=== PATIENT | female | born 1965 | race Caucasian/White ===

== ENCOUNTER → 2019-04-16 15:32 | Outpatient (CLI) | payer OTHER, SELFPAY | PROVIDERS: Referring Provider Otolaryngology; Visit Provider Otolaryngology | DX: J02.9 Acute pharyngitis, unspecified (principal) | CPT/HCPCS: 87070 ==

== ENCOUNTER → 2019-11-11 11:32 | Outpatient (CLI) | payer OTHER, SELFPAY ==
[2019-11-11 10:43] VITALS: BMI 29.2
[2019-11-11 12:42] LABS: ALB/GLOB Ratio 1.1 RATIO (0.9-2.4); AST(SGOT) 25 U/L (15-37); Alanine Aminotransfer ALT/SGPT 37 U/L (13-56); Alkaline Phosphatase 105 U/L (45-117); Anion Gap 3 (5-15); BUN 15 mg/dL (7-18); BUN/Creat Ratio 19.7 RATIO (10-20); Calcium,Total 9.4 mg/dL (8.5-10.1); Chloride 106 mmol/L (98-107); Creatinine, Serum 0.76 mg/dL (0.55-1.02); EST Glomerular Filtration Rate 84 mL/min (>60); Est Glom Filt Rate - Afr Amer 101 mL/min (>60); Globulin 3.7 g/dL (2.2-4.2); Glucose 92 mg/dL (74-106); Potassium 4.1 mmol/L (3.5-5.1); Protein, Total 7.7 g/dL (6.4-8.2); Sodium Level 141 mmol/L (136-145)
== END ==
PROVIDERS: PCP Internal Medicine; Visit Provider Internal Medicine
DX: E78.5 Hyperlipidemia, unspecified (principal)
CPT/HCPCS: 36415; 80053

== ENCOUNTER → 2020-05-18 09:45 | Outpatient (CLI) | payer OTHER, SELFPAY ==
[2020-05-18 09:31] VITALS: BMI 29.2
[2020-05-18 12:19] LABS: Absolute Neutrophil Count 3.6 X10^3/uL (2.0-7.7); Basophil# 0.05 X10^3/uL; Basophil% 0.9 % (0-1); Eosinophil# 0.09 X10^3/uL; Eosinophils% 1.6 % (0-5); Hematocrit 42.8 % (37-47); Hemoglobin 13.8 g/dL (12.0-15.0); Lymphocyte % 23.7 % (19-41); Mean Corp Hgb Conc 32.2 g/dL (32-36); Mean Corpuscular Hgb 28.6 pg (27.0-32.0); Mean Corpuscular Volume 88.6 fL (81-99); Mean Platelet Vol. 9.4 fl (6.2-12.0); Monocyte# 0.42 X10^3/uL; Monocyte% 7.7 % (0-10); NRBC Flagged by Analyzer 0 % (0-5); Neutrophil # 3.61 X10^3/uL (2.7-7.7); Neutrophil % 65.7 % (47-70); Platelet Count 342 K/mm3 (150-450); RBC Distribution Width CV 13.9 % (11.6-14.6); RBC Distribution Width SD 45.1 fl (35.1-43.9); Red Blood Count 4.83 M/mm3 (4.2-5.4); White Blood Count 5.5 K/mm3 (4.4-11.0)
[2020-05-18 12:42] LABS: ALB/GLOB Ratio 1.1 RATIO (0.9-2.4); AST(SGOT) 21 U/L (15-37); Alanine Aminotransfer ALT/SGPT 28 U/L (13-56); Albumin, Serum 3.8 g/dL (3.2-5.0); Alkaline Phosphatase 91 U/L (45-117); Anion Gap 5 (5-15); BUN 12 mg/dL (7-18); BUN/Creat Ratio 16.2 RATIO (10-20); Calcium,Total 8.9 mg/dL (8.5-10.1); Chloride 109 mmol/L (98-107); Cholesterol 145 mg/dL (200); Creatinine, Serum 0.74 mg/dL (0.55-1.02); EST Glomerular Filtration Rate 86 mL/min (>60); Est Glom Filt Rate - Afr Amer 104 mL/min (>60); Globulin 3.5 g/dL (2.2-4.2); Glucose 85 mg/dL (74-106); High Density Lipoprotein 40 mg/dL; Potassium 4.4 mmol/L (3.5-5.1); Protein, Total 7.3 g/dL (6.4-8.2); Sodium Level 141 mmol/L (136-145); Triglycerides 103 mg/dL; Very Low Density Lipoprotein 21 mg/dL (5-40)
== END ==
PROVIDERS: PCP Internal Medicine; Referring Provider Internal Medicine; Visit Provider Internal Medicine
DX: E78.5 Hyperlipidemia, unspecified (principal)
CPT/HCPCS: 36415; 80053; 80061; 85025

== ENCOUNTER → 2020-12-17 08:34 | Outpatient (CLI) | payer OTHER, SELFPAY ==
[2020-05-18 09:31] VITALS: BMI 29.2
[2020-12-17 12:18] LABS: ALB/GLOB Ratio 1.1 RATIO (0.9-2.4); AST(SGOT) 26 U/L (15-37); Alanine Aminotransfer ALT/SGPT 33 U/L (13-56); Albumin, Serum 3.9 g/dL (3.2-5.0); Alkaline Phosphatase 69 U/L (45-117); Anion Gap 6 (5-15); BUN 13 mg/dL (7-18); BUN/Creat Ratio 17.2 RATIO (10-20); Chloride 104 mmol/L (98-107); Creatinine, Serum 0.75 mg/dL (0.55-1.02); EST Glomerular Filtration Rate 84 mL/min (>60); Est Glom Filt Rate - Afr Amer 102 mL/min (>60); Globulin 3.4 g/dL (2.2-4.2); Glucose 77 mg/dL (74-106); Potassium 4.1 mmol/L (3.5-5.1); Protein, Total 7.3 g/dL (6.4-8.2); Sodium Level 138 mmol/L (136-145)
== END ==
PROVIDERS: PCP Internal Medicine; Referring Provider Internal Medicine; Visit Provider Internal Medicine
DX: R17 Unspecified jaundice (principal)
CPT/HCPCS: 36415; 80053

== ENCOUNTER → 2021-01-01 09:07 | Outpatient (CLI) | payer OTHER, SELFPAY ==
[2020-05-18 09:31] VITALS: BMI 29.2
--- NOTE | 2021-01-01 08:44 | US_ITS ---
STUDY: ABDOMINAL ULTRASOUND - RIGHT UPPER QUADRANT REASON FOR VISIT: Female, 55 years old ELEVATED BILIRUBIN TECHNIQUE: Ultrasound evaluation of the right upper quadrant was performed with real-time and static ramos-scale imaging. TECHNICAL QUALITY: Adequate. COMPARISON: None. FINDINGS: Liver: The liver measures 13.7 cm. There is normal echogenicity of the liver. The bile ducts are within normal limits. There is hepatic color flow. The direction of portal flow is hepatopetal. There is no demonstrated mass lesion. Gallbladder: Normal distended gallbladder. The gallbladder wall measures 2 mm. There is a negative sonographic Bates''s sign. There is no pericholecystic fluid. There are no gallstones. Common Bile Duct (C.B.D.): The common bile duct measures 3 mm. Pancreas: Normal size of the head, body and tail of the pancreas. There is normal echogenicity of the pancreas. There is no demonstrated pancreatic mass or cyst. Right Kidney: Normal size of the right kidney. The right kidney measures 9.9 cm. Normal renal cortex. The right cortex measures 1.9 cm. There is no demonstrated renal mass or cyst. There is no right hydronephrosis. US/Abdomen Limited IMPRESSION: Normal right upper quadrant ultrasound examination. Electronically Signed: Glenn Little MD at 11:40 EDT Tel , Service support ,
== END ==
PROVIDERS: PCP Internal Medicine; Referring Provider Internal Medicine Gastroenterology; Visit Provider Internal Medicine Gastroenterology
DX: R17 Unspecified jaundice (principal)
CPT/HCPCS: 76705

== ENCOUNTER → 2021-05-17 09:50 | Outpatient (CLI) | payer OTHER, SELFPAY ==
[2021-05-17 10:18] LABS: Absolute Lymphocyte Count 1.16 X10^3/uL (0.83-4.51); Absolute Neutrophil Count 3.8 X10^3/uL (2.0-7.7); Basophil# 0.04 X10^3/uL; Basophil% 0.7 % (0-1); Eosinophil# 0.06 X10^3/uL; Eosinophils% 1.1 % (0-5); Hematocrit 44.2 % (37-47); Hemoglobin 14.1 g/dL (12.0-15.0); Lymphocyte # 1.16 X10^3/ul (0.83-4.51); Lymphocyte % 20.8 % (19-41); Mean Corp Hgb Conc 31.9 g/dL (32-36); Mean Corpuscular Hgb 28.9 pg (27.0-32.0); Mean Corpuscular Volume 90.6 fL (81-99); Mean Platelet Vol. 8.7 fl (6.2-12.0); Monocyte# 0.46 X10^3/uL; Monocyte% 8.3 % (0-10); NRBC Flagged by Analyzer 0 % (0-5); Neutrophil # 3.83 X10^3/uL (2.7-7.7); Neutrophil % 68.7 % (47-70); Platelet Count 370 K/mm3 (150-450); RBC Distribution Width CV 13.1 % (11.6-14.6); RBC Distribution Width SD 43.6 fl (35.1-43.9); Red Blood Count 4.88 M/mm3 (4.2-5.4); White Blood Count 5.6 K/mm3 (4.4-11.0)
[2021-05-17 10:48] LABS: ALB/GLOB Ratio 1.1 RATIO (0.9-2.4); AST(SGOT) 23 U/L (15-37); Alanine Aminotransfer ALT/SGPT 28 U/L (13-56); Albumin, Serum 3.9 g/dL (3.2-5.0); Alkaline Phosphatase 73 U/L (45-117); Anion Gap 2 (5-15); BUN 14 mg/dL (7-18); BUN/Creat Ratio 18.8 RATIO (10-20); Calcium,Total 9.4 mg/dL (8.5-10.1); Chloride 107 mmol/L (98-107); Cholesterol 147 mg/dL (200); Creatinine, Serum 0.74 mg/dL (0.55-1.02); EST Glomerular Filtration Rate 85 mL/min (>60); Est Glom Filt Rate - Afr Amer 103 mL/min (>60); Globulin 3.6 g/dL (2.2-4.2); Glucose 83 mg/dL (74-106); High Density Lipoprotein 39 mg/dL; Potassium 4.8 mmol/L (3.5-5.1); Protein, Total 7.5 g/dL (6.4-8.2); Sodium Level 138 mmol/L (136-145); Triglycerides 119 mg/dL; Very Low Density Lipoprotein 24 mg/dL (5-40)
== END ==
PROVIDERS: PCP Internal Medicine; Referring Provider Internal Medicine; Visit Provider Internal Medicine
DX: Z00.00 Encounter for general adult medical examination without abnormal findings (principal)
CPT/HCPCS: 36415; 80053; 80061; 85025

== ENCOUNTER 2021-11-10 09:00 | Outpatient (RCR) | payer OTHER, SELFPAY ==
--- NOTE | 2021-10-05 10:40 | HP.PTEVAL ---
Patient's Visit Information AURELIO POOLE is a 56 year old F referred to Physical Therapy by Dr. Carmen Arteaga DPM with a diagnosis of RIGHT 2ND METETARSAL PHALANGEAL CAPSULTIS. Date of Evaluation: 10/05/21 Physical Therapist: Suraj Michel, PT, Cert MDT, OCS - Visit Plan Frequency: 2x /Week Duration: 4 Weeks Plan: PT INTERVETION ROM TOES/ANKLE,FOOT INTRINSICS STRENGTHENING,ANKLE STRENGTHENING,PROPRIOCEPTION AND MANUAL THERAPY TOE/ANKLE MOBILIZATION - Subjective This 56 y/o female presents to physical therapy with with 2nd metatarsal pain. Patient had ligament repair 2nd metatarsal ligament repair ~ [address] Costa[address] Arteaga recommended adjusted orthotic with padding but irritated more so removed. Patient conts to have pain and unable to move 2nd-3rd and 4th. No prior PT .c/o paresthesia/tingling toes. Aggravating factors standing for extended period ,inactivity ,walking on uneven surfaces, elevated grade . Alleviating factors movement. Patient patient is frustrated with condition and pain. Patient condition affects QOL and function and job demands 4 hrs cleaning surface. SOCIAL: . VOCATION: cleaning - Pain Left Foot Pain Intensity (Out of 10): 6 Pain Intensity Range: 10 Comment: toes - Objective POSTURE: frontal plane mechanics -pes cavus ..hammer toes. GAIT: reciprocal pattern. NEURO: c/o numbness tingling toes. AROM: dorsiflexion 5 degrees from 0 , plantarflexion 60 degrees ,inversion 10 degrees, inversion 35 degrees. decrease toes flexion 5 degrees and extension 0 degrees. MMT: anterior tibials, posterior tibials , peroneus 4/5, G-S 4/5. PROPRIOCEPTION: fair 15-20 seconds. G-S FLEXABLITY: mod tight - Balance/Special Test Scores Lower Extremity Functional Score: 44 - Goals Goal 1:: Patient to be I with HEP for toe pain and ROM Goal Time Frame: 4-6 Weeks Goal 2:: Patient to demonstrate 60% improvement with decrease pain to improve gait and extended walking Goal Time Frame: 4-6 Weeks Goal 3:: Patient to improve AROM right ankle symmetrical and 2nd,3rd and 4th toes right to left to walk on uneven traisn Goal Time Frame: 4-6 Weeks Goal 4:: Patient to improve proprioception right 60sec to improve gait Goal Time Frame: 4-6 Weeks Goal 5:: Patient to improve LFES score by 10 points to improve function Goal Time Frame: 4-6 Weeks - Rehabilitation Potential Physical Therapy Diagnosis: This patient had 2nd toe ligament repair ~ one year ago pain persisted with decrease 2n,3rd,4th toe ROM ,strength, and proprioception gait thus benefit from skilled PT Rehabilitation Potential: Good - Anticipated Interventions Patient/Client Instruction: Educate patient on: Condition, Plan of Care For the Purpose of:: To decrease pain, To increase ROM, To improve muscle performance and motor function, To improve ability to perform ADL's, To increase tolerance to activity/condition/position, To improve ability of physical actions for home/community/work/leisure, To improve health of tissue, To decrease soft tissue restriction, To increase flexibility/ROM, To reduce risk of recurrence, To prevent re-injury Therapeutic Exercise to Include: Strength training, Balance training, Flexibilty training, Active ROM Comment: ANKLE/TOES For the Purpose of:: To decrease pain, To increase ROM, To improve muscle performance and motor function, To improve performance and independence with ADL's, To improve ability of physical actions for home/community/work/leisure, To improve health of tissue, To decrease soft tissue restriction, To increase flexibility/ROM, To improve safety with gait Manual Therapy Techniques to Include: Mobilization Comment: TOE/ANKLE For the Purpose of:: To increase ROM, To improve health of tissue, To decrease soft tissue restriction, To increase flexibility/ROM Thank you for the opportunity to evaluate your patient. For Medicare and Medicare HMO plans, please review the plan of care and approve it. It will need to be FAXED BACK to us at [phone] for Medicare purposes. For Medicare only, by signing this I certify the plan of care. Please let me know if there are questions or concerns regarding this plan of care. Physician Signature: Date:
--- NOTE | 2021-11-11 14:51 | HP.PTDCSUM ---
It has been my pleasure to treat AURELIO POOLE referred by Dr. Carmen Arteaga, DPM, with the diagnosis of LEFT 2ND METETARSAL PHALANGEAL CAPSULTIS for a total of 8 visit(s). Discharge Date: Please see the following information for a summary of their discharge status. Subjective: Doing well.. plan for possible MRI. Also patient has foot plate Left Foot Pain Intensity (Out of 10): 1 % Improvement: 90 Objective/Function: POSTURE: WFL. GAIT: RECIPROCAL PATTERN. MMT: ANKLE 5/5. 2ND TOE 3-/4 Goal 1:: Patient to be I with HEP for toe pain and ROM Goal 2:: Patient to demonstrate 60% improvement with decrease pain to improve gait and extended walking Goal 3:: Patient to improve AROM right ankle symmetrical and 2nd,3rd and 4th toes right to left to walk on uneven traisn Goal 4:: Patient to improve proprioception right 60sec to improve gait Goal 5:: Patient to improve LFES score by 10 points to improve function Plan: D/C TO HEP If there are questions or concerns regarding this patient's physical therapy, please feel free to call me at [phone]. Thank you for the referral of this patient. Sincerely, Suraj Michel, PT, Cert MDT, OCS Balance/Gait/Functional tests - Balance/Special Test Scores Lower Extremity Functional Score: 64
== END 2021-11-10 19:00 | disposition home or self-care (01) ==
LOC: PT 09:00
PROVIDERS: PCP Internal Medicine; Referring Provider Podiatrist; Visit Provider Podiatrist
DX: M77.52 Other enthesopathy of left foot and ankle (principal)
CPT/HCPCS: 97035; 97110; 97140; 97162

== ENCOUNTER 2021-11-30 08:02 | Outpatient (CLI) | payer OTHER, SELFPAY ==
--- NOTE | 2021-11-30 08:10 | MRI_ITS ---
STUDY: MRI LEFT FOREFOOT WITHOUT CONTRAST REASON FOR EXAM: Chronic pain of the distal second metatarsal, prior surgery in August 2020 without improvement, evaluate for capsulitis, plantar plate injury. TECHNIQUE: Standardized fat and water weighted pulse sequences were obtained in all 3 orthogonal planes. COMPARISON: None. FINDINGS: There is mild arthrosis of the metatarsophalangeal joint of the hallux with mild chondral thinning (T2 long axis image 11). There is very mild tibial sesamoiditis (inversion recovery short axis image 21). Normal fibular sesamoid. Normal interphalangeal joint of the hallux. There is mild bone edema in the ungual tuft of the first distal phalanx (inversion recovery sagittal image 20). Normal proximal phalanx of the great toe. Normal medial and lateral heads of the flexor hallucis brevis tendons. Normal flexor and extensor hallucis longus tendons. Normal second through fifth metatarsophalangeal (MTP) joints. Specifically there is no demonstrated tear of the plantar plate of the second metatarsophalangeal joint (inversion recovery sagittal images 16, 17). Specifically there is no demonstrated capsulitis of the second metatarsophalangeal joint. Normal interphalangeal joints of the second through fifth toes. Normal proximal, middle and distal phalanges of the second through fifth toes. There are hammertoe deformities of the second through fourth digits. Normal first through fourth intermetatarsal spaces. Normal flexor and extensor tendons of the second through fifth toes. There is a small subchondral stress fracture of the second metatarsal head (T1 sagittal image 15; T2 long axis image 11) with mild associated bone edema (inversion recovery short axis image 23). Normal intrinsic muscles of the forefoot. There is a pressure lesion in the subcutis adipose space plantar to the fifth metatarsophalangeal joint (T1 short axis image 17). MRI/Lower Ext/No Jt/w/o IMPRESSION: Small subchondral stress fracture of the second metatarsal head. Mild arthrosis of the first metatarsophalangeal joint. Mild bone edema in the ungual tuft of the first distal phalanx. Very mild tibial sesamoiditis. Pressure lesion in the subcutis adipose space plantar to the fifth metatarsophalangeal joint. No demonstrated capsulitis or plantar plate injury of the second metatarsophalangeal joint. Electronically Signed: Dick Kilgore MD at 10:02 EST ,
== END 2021-11-30 23:59 | disposition home or self-care (01) ==
LOC: MRI 08:05
PROVIDERS: PCP Internal Medicine; Referring Provider Podiatrist; Visit Provider Podiatrist
DX: M84.375A Stress fracture, left foot, initial encounter for fracture (principal); X58.XXXA Exposure to other specified factors, initial encounter; M19.072 Primary osteoarthritis, left ankle and foot; M25.872 Other specified joint disorders, left ankle and foot; M77.52 Other enthesopathy of left foot and ankle
CPT/HCPCS: 73718

== ENCOUNTER → 2022-05-01 | Outpatient (CLI) | payer OTHER, SELFPAY ==
[2022-05-01 12:08] LABS: Absolute Lymphocyte Count 1.56 X10^3/uL (0.83-4.51); Absolute Neutrophil Count 4.6 X10^3/uL (2.0-7.7); Basophil# 0.04 X10^3/uL; Basophil% 0.6 % (0-1); Eosinophil# 0.12 X10^3/uL; Eosinophils% 1.8 % (0-5); Hematocrit 40.5 % (37-47); Hemoglobin 13.5 g/dL (12.0-15.0); Lymphocyte # 1.56 X10^3/ul (0.83-4.51); Lymphocyte % 22.9 % (19-41); Mean Corp Hgb Conc 33.3 g/dL (32-36); Mean Corpuscular Hgb 29.7 pg (27.0-32.0); Mean Corpuscular Volume 89.2 fL (81-99); Mean Platelet Vol. 8.8 fl (6.2-12.0); Monocyte# 0.48 X10^3/uL; NRBC Flagged by Analyzer 0 % (0-5); Neutrophil # 4.59 X10^3/uL (2.7-7.7); Neutrophil % 67.4 % (47-70); Platelet Count 339 K/mm3 (150-450); RBC Distribution Width SD 42.2 fl (35.1-43.9); Red Blood Count 4.54 M/mm3 (4.2-5.4); White Blood Count 6.8 K/mm3 (4.4-11.0)
[2022-05-01 12:41] LABS: ALB/GLOB Ratio 1.1 RATIO (0.9-2.4); AST(SGOT) 26 U/L (15-37); Alanine Aminotransfer ALT/SGPT 33 U/L (13-56); Albumin, Serum 3.7 g/dL (3.2-5.0); Alkaline Phosphatase 81 U/L (45-117); Anion Gap 5 (5-15); BUN 11 mg/dL (7-18); BUN/Creat Ratio 13.9 RATIO (10-20); Calcium,Total 9.3 mg/dL (8.5-10.1); Chloride 106 mmol/L (98-107); Cholesterol 164 mg/dL (200); Creatinine, Serum 0.79 mg/dL (0.55-1.02); EST Glomerular Filtration Rate 80 mL/min (>60); Est Glom Filt Rate - Afr Amer 96 mL/min (>60); Globulin 3.5 g/dL (2.2-4.2); Glucose 90 mg/dL (74-106); High Density Lipoprotein 37 mg/dL; Potassium 4.5 mmol/L (3.5-5.1); Protein, Total 7.2 g/dL (6.4-8.2); Sodium Level 138 mmol/L (136-145); Triglycerides 145 mg/dL; Very Low Density Lipoprotein 29 mg/dL (5-40)
== END | disposition home or self-care (01) ==
LOC: BIMLAB 11:09
PROVIDERS: PCP Internal Medicine; Referring Provider Internal Medicine; Visit Provider Internal Medicine
DX: Z00.00 Encounter for general adult medical examination without abnormal findings (principal)
CPT/HCPCS: 36415; 80053; 80061; 85025

== ENCOUNTER → 2022-05-05 | Outpatient (CLI) | payer OTHER, SELFPAY ==
--- NOTE | 2022-05-05 07:27 | BI_ITS ---
MAMMOGRAPHY - BILATERAL SCREENING REASON FOR EXAM: Female, 56 years old. Routine annual screening examination. PERTINENT HISTORY: Non-contributory. TECHNIQUE: Digital bilateral breast mini (3D mammographic acquisition) in the CC and MLO projections. 2-D mediolateral oblique (MLO) and craniocaudad (CC) views of both breasts were obtained. CAD: Full Field Digital Mammography with Computer Added Detection was performed. COMPARISON: Screening mammogram from outside hospital from 10/20/2019 FINDINGS: Breast Composition: The breasts are heterogeneously dense, which may obscure small masses. There are no dominant masses or suspicious calcifications. No other significant abnormalities are identified. There has been no significant change since the prior study. BI/SCRN MAMM (CAD)W/MINI BILAT IMPRESSION: Stable bilateral screening mammogram. Yearly follow-up mammogram recommended. (A) ASSESSMENT CATEGORY: BIRADS Category 1: Negative. A letter regarding these results will be sent to the patient by the facility within 30 days. Approximately 10% of breast cancers are not detected by mammography. A normal mammogram should not delay biopsy of a clinically suspicious abnormality. Electronically Signed: Beck Jiang, at 10:14 EDT ,
== END | disposition home or self-care (01) ==
LOC: OPBI 07:26
PROVIDERS: PCP Internal Medicine; Visit Provider Internal Medicine
DX: Z12.31 Encounter for screening mammogram for malignant neoplasm of breast (principal)
CPT/HCPCS: 77063; 77067

== ENCOUNTER → 2022-05-27 | Outpatient (CLI) | payer OTHER, SELFPAY ==
--- NOTE | 2022-05-27 07:37 | MRI_ITS ---
STUDY: MRI LEFT FOREFOOT WITHOUT CONTRAST REASON FOR EXAM: Female, 56 years old. FOOT PAIN,2ND MT CYST, 2ND DIGIT HAMMER TOE TECHNIQUE: Standardized fat and water weighted pulse sequences were obtained in all 3 orthogonal planes. COMPARISON: 11/30/2021 FINDINGS: Normal metatarsophalangeal joint of the hallux. Normal tibial and fibular sesamoids, with normal sesamoids-first metatarsal articulations. Normal interphalangeal joint of the hallux. Normal proximal and distal phalanges of the great toe. Normal medial and lateral heads of the flexor hallucis brevis tendons. Normal flexor and extensor hallucis longus tendons. Normal second through fifth metatarsophalangeal (MTP) joints. Normal interphalangeal joints of the second through fifth toes. Normal proximal, middle and distal phalanges of the second through fifth toes. Normal first through fourth intermetatarsal spaces. Normal flexor and extensor tendons of the second through fifth toes. Normal visualized metatarsi. Normal intrinsic muscles of the forefoot. There is no demonstrated soft tissue abnormality. MRI/Lower Ext/No Jt/w/o IMPRESSION: Normal unenhanced MRI of the forefoot. Electronically Signed: Glenn Little MD at 13:09 EDT ,
== END | disposition home or self-care (01) ==
LOC: MRI 07:16
PROVIDERS: PCP Internal Medicine; Referring Provider Podiatrist; Visit Provider Podiatrist
DX: M20.42 Other hammer toe(s) (acquired), left foot (principal); M85.60 Other cyst of bone, unspecified site; M79.672 Pain in left foot
CPT/HCPCS: 73718

== ENCOUNTER → 2023-06-27 | Outpatient (CLI) | payer OTHER, SELFPAY ==
[2023-06-27 16:37] LABS: Basophil# 0.05 X10^3/uL; Basophil% 0.7 % (0-1); Eosinophil# 0.18 X10^3/uL; Eosinophils% 2.4 % (0-5); Hemoglobin 13.7 g/dL (12.0-15.0); Lymphocyte % 21.4 % (19-41); Mean Corp Hgb Conc 32.6 g/dL (32-36); Mean Corpuscular Hgb 29.1 pg (27.0-32.0); Mean Corpuscular Volume 89.4 fL (81-99); Mean Platelet Vol. 8.7 fl (6.2-12.0); NRBC Flagged by Analyzer 0 % (0-5); Neutrophil # 5.01 X10^3/uL (2.7-7.7); Neutrophil % 67.1 % (47-70); Platelet Count 363 K/mm3 (150-450); RBC Distribution Width SD 42.5 fl (35.1-43.9); White Blood Count 7.5 K/mm3 (4.4-11.0)
[2023-06-27 18:14] LABS: ALB/GLOB Ratio 1.1 RATIO (0.9-2.4); AST(SGOT) 19 U/L (15-37); Alanine Aminotransfer ALT/SGPT 30 U/L (13-56); Albumin, Serum 3.9 g/dL (3.2-5.0); Alkaline Phosphatase 82 U/L (45-117); Anion Gap 2 (5-15); BUN 15 mg/dL (7-18); BUN/Creat Ratio 18.5 RATIO (10-20); Calcium,Total 10.1 mg/dL (8.5-10.1); Chloride 106 mmol/L (98-107); Cholesterol 158 mg/dL (200); Creatinine, Serum 0.81 mg/dL (0.55-1.02); EST Glomerular Filtration Rate 77 mL/min (>60); Est Glom Filt Rate - Afr Amer 93 mL/min (>60); Globulin 3.4 g/dL (2.2-4.2); Glucose 92 mg/dL (74-106); High Density Lipoprotein 32 mg/dL; Potassium 4.3 mmol/L (3.5-5.1); Protein, Total 7.3 g/dL (6.4-8.2); Sodium Level 137 mmol/L (136-145); T4 Free Direct 0.74 ng/dL (0.76-1.46); Thyroid Stim Hormone (TSH) 2.31 uIU/mL (0.358-3.74); Triglycerides 186 mg/dL; Very Low Density Lipoprotein 37 mg/dL (5-40)
== END | disposition home or self-care (01) ==
LOC: BIMLAB 15:23
PROVIDERS: PCP Internal Medicine; Referring Provider Internal Medicine; Visit Provider Internal Medicine
DX: E78.5 Hyperlipidemia, unspecified (principal); E03.9 Hypothyroidism, unspecified
CPT/HCPCS: 36415; 80053; 80061; 84439; 84443; 85025

== ENCOUNTER → 2023-08-06 | Outpatient (CLI) | payer OTHER, SELFPAY ==
--- NOTE | 2023-08-06 07:23 | BI_ITS ---
MAMMOGRAPHY - BILATERAL SCREENING REASON FOR EXAM: Female, 57 years old. Routine annual screening examination. PERTINENT HISTORY: Non-contributory. TECHNIQUE: Digital bilateral breast mini (3D mammographic acquisition) in the CC and MLO projections. 2-D mediolateral oblique (MLO) and craniocaudad (CC) views of both breasts were obtained. CAD: Full Field Digital Mammography with Computer Added Detection was performed. COMPARISON: Comparison is made with prior study May 05, 2022. FINDINGS: Breast Composition: The breasts are heterogeneously dense, which may obscure small masses. There are no dominant masses or suspicious calcifications. Stable benign-appearing bilateral axillary lymph nodes. No other significant abnormalities are identified. There has been no significant change since the prior study. BI/SCRN MAMM (CAD)W/MINI BILAT IMPRESSION: Stable bilateral screening mammogram. Yearly follow-up mammogram recommended. (A) ASSESSMENT CATEGORY: BIRADS Category 2: Benign. A letter regarding these results will be sent to the patient by the facility within 30 days. Approximately 10% of breast cancers are not detected by mammography. A normal mammogram should not delay biopsy of a clinically suspicious abnormality. [id number] Electronically Signed: Moi Reddy MD at 9:16 EST ,
== END | disposition home or self-care (01) ==
LOC: OPBI 07:22
PROVIDERS: PCP Internal Medicine; Referring Provider Internal Medicine; Visit Provider Internal Medicine
DX: Z12.31 Encounter for screening mammogram for malignant neoplasm of breast (principal)
CPT/HCPCS: 77063; 77067

== ENCOUNTER → 2024-06-30 | Outpatient (CLI) | payer OTHER, SELFPAY ==
[2024-06-30 12:13] LABS: Absolute Lymphocyte Count 1.18 X10^3/uL (0.83-4.51); Absolute Neutrophil Count 3.7 X10^3/uL (2.0-7.7); Basophil# 0.04 X10^3/uL; Basophil% 0.7 % (0-1); Eosinophil# 0.16 X10^3/uL; Eosinophils% 2.9 % (0-5); Hematocrit 44.3 % (37-47); Hemoglobin 14.2 g/dL (12.0-15.0); Lymphocyte # 1.18 X10^3/ul (0.83-4.51); Lymphocyte % 21.1 % (19-41); Mean Corp Hgb Conc 32.1 g/dL (32-36); Mean Corpuscular Hgb 28.9 pg (27.0-32.0); Mean Platelet Vol. 9.2 fl (6.2-12.0); Monocyte# 0.51 X10^3/uL; Monocyte% 9.1 % (0-10); NRBC Flagged by Analyzer 0 % (0-5); Platelet Count 339 K/mm3 (150-450); RBC Distribution Width CV 13.2 % (11.6-14.6); RBC Distribution Width SD 43.8 fl (35.1-43.9); Red Blood Count 4.92 M/mm3 (4.2-5.4); White Blood Count 5.6 K/mm3 (4.4-11.0)
[2024-06-30 12:31] LABS: Vitamin D,25 Hydroxy 30.7 ng/mL
[2024-06-30 12:47] LABS: ALB/GLOB Ratio 1.1 RATIO (0.9-2.4); AST(SGOT) 24 U/L (15-37); Alanine Aminotransfer ALT/SGPT 25 U/L (13-56); Albumin, Serum 3.7 g/dL (3.2-5.0); Alkaline Phosphatase 77 U/L (45-117); Anion Gap 6 (5-15); BUN 12 mg/dL (7-18); BUN/Creat Ratio 14.2 RATIO (10-20); Calcium,Total 9.7 mg/dL (8.5-10.1); Chloride 106 mmol/L (98-107); Cholesterol 144 mg/dL (200); Creatinine, Serum 0.84 mg/dL (0.55-1.02); EST Glomerular Filtration Rate 73 mL/min (>60); Est Glom Filt Rate - Afr Amer 89 mL/min (>60); Globulin 3.5 g/dL (2.2-4.2); Glucose 89 mg/dL (74-106); High Density Lipoprotein 40 mg/dL; Potassium 4.4 mmol/L (3.5-5.1); Protein, Total 7.2 g/dL (6.4-8.2); Sodium Level 138 mmol/L (136-145); T4 Free Direct 0.79 ng/dL (0.76-1.46); Triglycerides 138 mg/dL; Very Low Density Lipoprotein 28 mg/dL (5-40)
== END | disposition home or self-care (01) ==
LOC: BIMLAB 09:49
PROVIDERS: PCP Internal Medicine; Referring Provider Internal Medicine; Visit Provider Internal Medicine
DX: Z00.00 Encounter for general adult medical examination without abnormal findings (principal); E03.9 Hypothyroidism, unspecified; E55.9 Vitamin D deficiency, unspecified
CPT/HCPCS: 36415; 80053; 80061; 82306; 84439; 84443; 85025

== ENCOUNTER → 2024-08-07 | Outpatient (CLI) | payer OTHER, SELFPAY ==
--- NOTE | 2024-08-07 11:54 | BI_ITS ---
MAMMOGRAPHY - BILATERAL SCREENING REASON FOR EXAM: Female, 58 years old. Routine annual screening examination. PERTINENT HISTORY: Non-contributory. TECHNIQUE: Digital bilateral breast mini (3D mammographic acquisition) in the CC and MLO projections. 2-D mediolateral oblique (MLO) and craniocaudad (CC) views of both breasts were obtained. CAD: Full Field Digital Mammography with Computer Added Detection was performed. COMPARISON: Comparison is made with prior study dated August 06, 2023 and May 05, 2022. FINDINGS: Breast Composition: The breasts are heterogeneously dense, which may obscure small masses. There are no dominant masses or suspicious calcifications. No other significant abnormalities are identified. There has been no significant change since the prior study. BI/SCRN MAMM (CAD)W/MINI BILAT IMPRESSION: Stable bilateral screening mammogram. Yearly follow-up mammogram recommended. (A) ASSESSMENT CATEGORY: BIRADS Category 1: Negative. A letter regarding these results will be sent to the patient by the facility within 30 days. Approximately 10% of breast cancers are not detected by mammography. A normal mammogram should not delay biopsy of a clinically suspicious abnormality. [id number] Electronically Signed: Moi Reddy MD at 13:14 EST ,
== END | disposition home or self-care (01) ==
LOC: OPBI 11:54
PROVIDERS: PCP Internal Medicine; Referring Provider Nurse Practitioner Women's Health; Visit Provider Nurse Practitioner Women's Health
DX: Z12.31 Encounter for screening mammogram for malignant neoplasm of breast (principal)
CPT/HCPCS: 77063; 77067

== ENCOUNTER → 2024-12-03 | Outpatient (CLI) | payer OTHER, SELFPAY | END | disposition home or self-care (01) | LOC: BIMLAB 10:02 | PROVIDERS: PCP Internal Medicine; Referring Provider Internal Medicine; Visit Provider Internal Medicine | DX: E03.9 Hypothyroidism, unspecified (principal) | CPT/HCPCS: 36415; 84439; 84443 ==

== ENCOUNTER → 2025-01-13 | Outpatient (CLI) | payer OTHER, SELFPAY | END | disposition home or self-care (01) | LOC: BIMLAB 08:16 | PROVIDERS: PCP Internal Medicine; Referring Provider Internal Medicine; Visit Provider Internal Medicine | DX: E03.9 Hypothyroidism, unspecified (principal) | CPT/HCPCS: 36415; 84443 ==

== ENCOUNTER → 2025-03-18 | Outpatient (CLI) | payer OTHER, SELFPAY | END | disposition home or self-care (01) | LOC: BIMLAB 08:47 | PROVIDERS: PCP Internal Medicine; Referring Provider Internal Medicine; Visit Provider Internal Medicine | DX: E03.9 Hypothyroidism, unspecified (principal) | CPT/HCPCS: 36415; 84443 ==

== ENCOUNTER → 2025-07-01 | Outpatient (CLI) | payer OTHER, SELFPAY ==
[2025-07-01 10:43] LABS: Hematocrit 39.7 % (37-47); Hemoglobin 13.2 g/dL (12.0-15.0); Immature Granulocytes Count 0.020 X10^3/uL (0.0-0.0); Mean Corp Hgb Conc 33.2 g/dL (32-36); Mean Corpuscular Volume 87.6 fL (81-99); Mean Platelet Vol. 8.9 fl (6.2-12.0); NRBC Flagged by Analyzer 0 % (0-5); Platelet Count 279 K/mm3 (150-450); RBC Distribution Width CV 12.8 % (11.6-14.6); RBC Distribution Width SD 41.1 fl (35.1-43.9); Red Blood Count 4.53 M/mm3 (4.2-5.4); White Blood Count 5.0 K/mm3 (4.4-11.0)
[2025-07-01 12:18] LABS: AST(SGOT) 36 U/L (<=31); Alanine Aminotransfer ALT/SGPT 36 U/L (<=34); Albumin, Serum 4.4 g/dL (3.4-4.8); Alkaline Phosphatase 92 U/L (35-104); Anion Gap 11 (5-15); BUN 14 mg/dL (4-19); BUN/Creat Ratio 19.2 RATIO (10-20); Calcium,Total 9.7 mg/dL (7.6-11.0); Carbon Dioxide 25.7 mmol/L (21.0-32.0); Chloride 104 mmol/L (98-108); Cholesterol 192 mg/dL (<=200); Globulin 3.0 g/dL (2.2-4.2); Glucose 91 mg/dL (70-99); Low Density Lipoprotein Calc. 116 mg/dL; Potassium 4.2 mmol/L (3.3-5.1); Triglycerides 116 mg/dL; Very Low Density Lipoprotein 23 mg/dL (5-40); cholesterol:hdl ratio screen 3.64
== END | disposition home or self-care (01) ==
PROVIDERS: PCP Internal Medicine; Referring Provider Internal Medicine; Visit Provider Internal Medicine
DX: E03.9 Hypothyroidism, unspecified (principal); E78.5 Hyperlipidemia, unspecified; I10 Essential (primary) hypertension; Z82.49 Family history of ischemic heart disease and other diseases of the circulatory system
CPT/HCPCS: 36415; 80053; 80061; 83695; 84443; 85025

== ENCOUNTER → 2025-08-27 | Outpatient (CLI) | payer OTHER, SELFPAY ==
--- OUTSIDE RECORDS SUMMARY | 2025-08-27 09:34 | XMS RPT_ITS | CCD ---
Author Organization [facility] Care Team Providers Care Element Winding Machine Tender Name Role Phone Dr. Lucía Sorto Primary Care Provider [phone] Dr. Lucía Sorto Attending Provider [phone] Dr. Lucía Sorto Referring Provider [phone] LUCÍA SORTO Primary Care Unavailable Lucía Sorto MD Primary Care Provider [phone] UMA EVANS MD Attending LUCÍA Arias MD Primary Care UnavailUMA Luo MD Attending LUCÍA Arias MD Primary Care UnavailDr. Lucía Nance Primary Care Provider [phone] Dr. Lucía Sorto Referring Provider [phone] MICKY Jacinto Attending Provider Dr. Lucía Sorto Attending Provider [phone] Dr. Lucía Sorto MD Primary Care Provider Dr. Lucía Sorto MD Referring Provider [phone] Paz Dominguez Attending Provider Dr. Lucía Sorto MD Attending Provider [phone] NURSE, BIM Attending Provider Dr. Lucía Bruno MD Primary Care Provider Dr. Lucía Sorto MD Referring Provider [phone] Macario FIGUEROA, Dr. Castrejon Primary Care Physician Macario FIGUEROA, Dr. Castrejon Attending Physician [phone] Macario FIGUEROA, Dr. Castrejon Referring Provider [phone] Richa FIGUEROA, Ryan Z Unavailable Macario FIGUEROA, Lucía B Unavailable [phone] Oleghe, Efewongbe Primary Care Unavailable Andres CARBONATION EQUIPMENT TENDER, Paz Attending Unavailable [place] CARBONATION EQUIPMENT TENDER, Paz Referring Unavailable Oleghe, Efewongbe Primary Care Unavailable Oleghe, Efewongbe Attending Unavailable Oleghe, Efewongbe Referring Unavailable Oleghe, Efewongbe Primary Care Unavailable Oleghe, Efewongbe Attending Unavailable Oleghe, Efewongbe Referring Unavailable Oleghe, Efewongbe Attending Unavailable Oleghe, Efewongbe Referring Unavailable Oleghe, Efewongbe Primary Care Unavailable Oleghe, Efewongbe Attending Unavailable Oleghe, Efewongbe Referring Unavailable Oleghe, Efewongbe Primary Care Unavailable Oleghe, Efewongbe Attending Unavailable Oleghe, Efewongbe Referring Unavailable Oleghe, Efewongbe Primary Care Unavailable Oleghe, Efewongbe Attending Unavailable Oleghe, Efewongbe Referring Unavailable Oleghe, Efewongbe Primary Care Unavailable Oleghe, Efewongbe Attending Unavailable Oleghe, Efewongbe Referring Unavailable Oleghe, Efewongbe Primary Care Unavailable Oleghe, Efewongbe Primary Care Unavailable [place] CARBONATION EQUIPMENT TENDER, Paz Attending Unavailable Oleghe, Efewongbe Referring Unavailable Oleghe, Efewongbe Attending Unavailable Oleghe, Efewongbe Referring Unavailable Oleghe, Efewongbe Primary Care Unavailable Oleghe, Efewongbe Primary Care Unavailable Oleghe, Efewongbe Attending Unavailable Allergies Allergy Classification Reported Allergen(s) Allergy Type Date of Onset Reaction(s) Facility (8 sources) Penicillins; Translations: [Penicillins] Allergy to substance 2 Hives and Rash [facility] (1 source) Penicillin V Drug Allergy [facility] Medications Current Medications Medication Drug Class(es) Dates Sig (Normalized) Sig (Original) amLODIPine 5 mg oral tablet (2 sources) Dihydropyridine Calcium Channel Tin Start: 07-01-2025 take 1 tablet by mouth once daily Amlodipine 5 mg tablet Active 5 mg PO daily 30 3 July 01, 2025 12:00am Complies with drug therapy [id number]-[id number] (METHYLCOBALAMIN) 1 MG CHEW (1 source) take 1 tablet by mouth once daily B12 Active 1,000 mcg chewable tablet 1 tablet by mouth once a day active Lilia Ambrose LPN [facility] calcium carbonate 1500 mg oral tablet (7 sources) Start: 10-30-2019 take 1 tablet by mouth once daily Calcium Carbonate (Calcium 600) 600 mg calcium (1,500 mg) tablet Active 600 mg PO DAILY October 30, 2019 1:00am Complies with drug therapy cholecalciferol 0.125 mg disintegrating oral tablet (7 sources) Vitamin D Start: 10-30-2019 Cholecalciferol (Vitamin D3) 5,000 unit tablet,disintegrati ng Active U PO October 30, 2019 1:00am Complies with drug therapy Start: 10-30-2019 Cholecalcifero l (Vitamin D3) Active UNIT PO October 30, 2019 12:00am fluticasone propionate 0.05 mg/actuat metered dose nasal spray (7 sources) Corticosteroid Start: 10-30-2019 take 50 ug nasal route once daily Fluticasone Propionate (Flonase Allergy Relief) 50 mcg/actuation spray,suspension Active 1 NMA INTRANASAL DAILY October 30, 2019 1:00am administer into each nostril Complies with drug therapy Start: 10-30-2019 take 1 spray(s) nasa l route once daily Fluticasone Propionate (Flonase Allergy Relief) 50 mcg/actuation spray,suspension Active 1 SPRAY INTRANASAL DAILY October 30, 2019 12:00am administer into each nostril ibuprofen 200 mg oral tablet (7 sources) Nonsteroidal Anti-inflammatory Drug Start: 10-30-2019 take 1 tablet by mouth every six hours as needed Ibuprofen (Advil) 200 mg tablet Active 200 mg PO EVERY 6 HOURS as needed October 30, 2019 1:00am Complies with drug therapy levothyroxine sodium 0.025 mg oral tablet (10 sources) l-Thyroxine Start: 01-13-2025 End: 03-25-2025 take 0.5 tablet by mouth once daily Levothyroxine 25 mcg tablet Active 25 ug PO daily 120 2 March 25, 2025 2:21pm take an additional half tablet on one day of the week Complies with drug therapy Start: 12-12-2024 End: 01-13-2025 take 1 tablet by mouth once daily Levothyroxine 25 mcg tablet Discontinued 25 ug PO daily 30 2 December 12, 2024 12:00am January 13, 2025 3:54pm rosuvastatin calcium 20 mg oral tablet (1 source) HMG-CoA Reductase Inhibitor take 1 tablet by mouth once daily rosuvastatin 20 mg tablet 1 tablet by mouth once a day active Lilia Ambrose LPN [facility] vitamin b12 1 mg oral tablet (7 sources) Vitamin B12 Start: take 1 tablet by mouth once daily Cyanocobalamin (Vitamin B-12) (Vitamin B-12) 1,000 mcg tablet Active 1000 ug PO DAILY May 17, 2021 12:00am Complies with drug therapy Completed/Discontinued Medications Medication Drug Class(es) Dates Sig (Normalized) Sig (Original) allergy shots (7 sources) Start: 10-30-2019 End: 05-01-2022 allergy shots Discontinued IM 0 October 30, 2019 1:00am May 01, 2022 10:48am Start: 10-30-2019 End: 05-01-2022 allergy shots Discontinued I M October 30, 2019 12:00am May 01, 2022 9:48am Start: 10-30-2019 End: 05-01-2022 allergy shots Discontinued I M October 30, 2019 1:00am May 01, 2022 10:48am diclofenac sodium 0.01 mg/mg topical gel (7 sources) Nonsteroidal Anti-inflammatory Drug Start: 11-11-2019 End: 05-25-2023 apply 2 g topically once Diclofenac Sodium 1 % gel Discontinued 2 g TOPICAL ONCE November 11, 2019 1:00am May 25, 2023 9:22am apply to single elbow, wrist or hand; for hand includes palm/fingers/back of hand Start: 11-11-2019 End: 05-25-2023 apply 2 g topically once Diclofenac Sodium Discontinu ed 2 GM TOPICAL ONCE November 11, 2019 12:00am May 25, 2023 8:22am apply to single elbow, wrist or hand; for hand includes palm/fingers/back of hand iodoral (7 sources) Start: 05-17-2021 End: 06-27-2023 iodoral Discontinued PO 0 Au annel 2020 12:00am June 27, 2023 2:43pm Start: 05-17-2021 End: 06-27-2023 iodoral Discontinued PO Apru 2020 12:00am June 27, 2023 2:43pm Start: 05-17-2021 End: 06-27-2023 iodoral Discontinued PO Apru 2020 11:00pm June 27, 2023 1:43pm Start: 05-17-2021 iodoral Active PO May 17, 2021 12:00am methylPREDNISolone 4 mg oral tablet (5 sources) Corticosteroid Start: 05-25-2023 End: 05-31-2023 take 1 tablet by mouth once Methylprednisolone (Medrol (Ranjan)) 4 mg tablets,dose pack Discontinued 4 mg PO per package directions 21 6 0 May 25, 2023 12:00am May 30, 2023 12:00am May 31, 2023 12:04am progesterone 100 mg oral capsule (11 sources) Progesterone Start: 05-17-2021 End: 10-29-2024 take 1 capsule by mouth at bedtime Progesterone Micronized 100 mg capsule Discontinued 100 mg PO AT BEDTIME June 30, 2024 9:32am October 29, 2024 10:27am off 7 days; repeat cycle simvastatin 20 mg oral tablet (20 sources) HMG-CoA Reductase Inhibitor Start: 10-30-2019 End: 07-30-2024 take 1 tablet by mouth at bedtime Simvastatin 20 mg tablet Discontinued 20 mg PO AT BEDTIME 90 0 May 05, 2024 10:01am July 30, 2024 2:27pm thyroid (care home) 30 mg oral tablet (5 sources) Start: 06-27-2023 End: 12-12-2024 Thyroid (Pork) (Customer Experience Analyst Thyroid) 30 mg tablet Discontinued mg PO June 27, 2023 12:00am December 12, 2024 1:43pm Problems Active Problems Problem Classification Problem Date Documented Date Episodic/Chronic Acquired foot deformities (2 sources) Other hammer toe(s) (acquired), left foot; Translations: [Other hammer toe(s) (acquired), left foot] Onset: 11-20-2022 Chronic Cardiac dysrhythmias (3 sources) Palpitations; Translations: [Palpitations] Onset: 07-01-2025 07-01-2025 Episodic Disorders of lipid metabolism (12 sources) Hyperlipidemia; Translations: [Hyperlipidemia, unspecified] Onset: 11-20-2022 Chronic Essential hypertension (3 sources) Hypertensive disorder; Translations: [Essential (primary) hypertension] Onset: 07-01-2025 07-01-2025 Chronic Immunizations and screening for infectious disease (1 source) Encounter for immunization; Translations: [Encounter for immunization] Onset: 07-01-2025 Episodic Menopausal disorders (6 sources) Atrophic vaginitis; Translations: [Postmenopausal atrophic vaginitis] 10-29-2024 Chronic Comment on above: coconut oil. If sx c all for vaginal estrogen cream Menopausal disorders (4 sources) Drug therapy finding; Translations: [Hormone replacement therapy] 10-29-2024 Episodic Nutritional deficiencies (4 sources) Vitamin D deficiency; Translations: [Vitamin D deficiency, unspecified] 06-30-2024 Chronic Osteoarthritis (2 sources) Primary osteoarthritis, right wrist; Translations: [Osteoarthrosis, localized, primary, forearm] Onset: 07-09-2025 07-09-2025 Chronic Other circulatory disease (5 sources) Elevated blood-pressure reading without diagnosis of hypertension; Translations: [Elevated blood-pressure reading, without diagnosis of hypertension] 12-12-2024 Episodic Other connective tissue disease (1 source) Pain in finger Episodic Other connective tissue disease (1 source) Pain in finger of left hand; Translations: [Pain in left finger(s)] 07-01-2025 Episodic Other connective tissue disease (2 sources) Digital mucous cyst of left hand; Translations: [Ganglion, left hand] Onset: 07-09-2025 07-09-2025 Episodic Other connective tissue disease (1 source) Pain in left finger(s); Translations: [Pain in left finger(s)] Onset: 07-01-2025 Episodic Residual codes; unclassified (4 sources) Postmenopausal state; Translations: [Asymptomatic menopausal state] 07-15-2024 Episodic Residual codes; unclassified (1 source) FH: premature coronary heart disease; Translations: [Family history of ischemic heart disease and other diseases of the circulatory system] 07-01-2025 Episodic Residual codes; unclassified (2 sources) Family history of ischemic heart disease and other diseases of the circulatory system; Translations: [Family history of ischemic heart disease and other diseases of the circulatory system] Onset: 07-01-2025 Episodic Sprains and strains (6 sources) Shoulder strain; Translations: [Strain of unspecified muscle, fascia and tendon at shoulder and upper arm level, right arm, initial encounter] 05-25-2023 Episodic Thyroid disorders (7 sources) Hypothyroidism; Translations: [Hypothyroidism, unspecified] Onset: 07-21-2025 06-27-2023 Chronic Thyroid disorders (2 sources) Disorder of thyroid, unspecified; Translations: [Disorder of thyroid, unspecified] Onset: 11-20-2022 Episodic Unclassified (1 source) M79.645 - Pain in left finger(s) Past or Other Problems Problem Classification Problem Date Documented Da te Episodic/Chronic Other circulatory disease (1 source) Elevated blood-pressure reading, without diagnosis of hypertension; Translations: [Elevated blood-pressure reading, without diagnosis of hypertension] Onset: 12-24-2024 Episodic Other screening for suspected conditions (not mental disorders or infectious disease) (1 source) Encounter for screening mammogram for malignant neoplasm of breast; Translations: [Encounter for screening mammogram for malignant neoplasm of breast] Onset: 09-06-2024 Episodic Results Test Name Value Interpretation Reference Range Facility 12 Lead EKGon 07-29-2025 12 Lead EKG [facility] Cardiovascular Services [address] [place] [address] 12 Lead EKG 07/29/25 0837 MR#: [id number] Acct: [id number] Name: AURELIO POOLE I Rep #: [id number] : 1965 59 From: Domingo Harrington MD Attending Dr: Dr. Lucía Sorto MD Status: PRE CLI Ordering Dr: Lucía Sorto MD Date: 07/29/25 Location: [facility] [place] Sex: F C Admitted: Test Reason : PALPS Blood Pressure : */* mmHG Vent. Rate : 58 BPM Atrial Rate : 58 BPM P-R Int : 150 ms QRS Dur : 92 ms QT Int : 452 ms P-R-T Axes : 5 29 6 degrees QTcB Int : 443 ms Sinus bradycardia Otherwise normal ECG Confirmed by Domingo Harrington ([id number]), assignment desk editor MARY ANN FLANAGAN ([id number]) on 07/29/2025 12:39:42 PM Referred By: Lucía Sorto Confirmed By: Domingo Harrington 07/29/25 1239 Date Domingo Harrington MD CC: Dr. Lucía Sorto MD Signed Normal [facility] Limited Chest CT Cardiac Onl yon 07-29-[address] Cardiac Only [facility] Imaging Services [address] [place] [id number] Cardiac Only MR#: [id number] Acct: [id number] Name: AURELIO POOLE I Rep #: [id number] : 1965 F 59 From: Lenin Alex PCP: Dr. Lucía Sorto MD Status: REG REF Study: Limited Chest CT Cardiac Only Date of Exam: Exam# [id number] Ordering Dr: Lucía Sorto MD PROCEDURE: LIMITED CHEST CT CARDIAC ONLY 07/29/2025 REASON FOR EXAM: CALCIUM SCORING Hypercholesterolemia, hypertension. Family history of coronary artery disease. TECHNIQUE: Procedure Code: CTCCTACHLIM Modality: CT Procedure: LIMITED CHEST CT CARDIAC ONLY One or more dose reduction techniques were used (e.g., Automated exposure control, adjustment of the mA and/or kV according to patient size, use of iterative reconstruction technique). RADIATION DOSE SUMMARY: CTDlvol: 12.19 mGy DLP: 195.04 mGycm COMPARISON: None. CT/Limited Chest CT Cardiac Only IMPRESSION: Limited imaging of the lungs demonstrates no acute process. No pleural effusion or pneumothorax is seen in visualized areas. No adenopathy is noted. The visualized upper abdomen demonstrates no significant abnormality. Reading Location: [place] [address] CC: Dr. Lucía Sorto MD Index Clerk: Signed Normal [facility] Relevant diagnostic tests/la boratory data Narrativeon 07-09-2025 Fall risk assessment no SHONA Kaltura Work Phone: MEDS REVIEW Done [employer] Work Phone: MEDS REVIEWD Medications reviewed with changes [employer] Work Phone: Lipoprotein Aon 07-02-2025 Lipoprotein a [Moles/Vol] 295.5 nmol/L Abnormal <75.0 [facility] Comment on above: Order Comment: Test( s) 730037-Puhyeimdjtt (a)was developed and its performance characteristicsdetermined by [employer]. It has not been cleared or approvedby the Food and Drug Administration. Result Comment: Resu lts confirmed on dilution. Note: Values greater than or equal to 75.0 nmol/L may indicate an independent risk factor for CHD, but must be evaluated with caution when applied to non- populations due to the influence of genetic factors on Lp(a) across ethnicities. Performed at: [address] [id number] Travel Manager: Dion Borjas PhD, Phone: [phone] Performed By: #### L 500.4050, L500.4100, L3400.4600, L100.0100, L501.9520 ####[facility] [address] [place], [address] CBC W/Diff, Automatedon 10-0 Absolute Lymph 1.28 X10 3/uL Normal 0.83-4.51 [facility] Comment on above: Performed By: #### L 500.4050, L500.4100, L3400.4600, L100.0100, L501.9520 #### [facility] [address] [place], [place], [id number] Absolute Neut 3.2 X10 3/uL Normal 2.0-7.7 [facility] Comment on above: Performed By: #### L 500.4050, L500.4100, L3400.4600, L100.0100, L501.9520 #### [facility] [address] [place], [address] Basophils/100 WBC (Bld) 0.8 % Normal 0-1 [facility] Comment on above: Performed By: #### L 500.4050, L500.4100, L3400.4600, L100.0100, L501.9520 #### [facility] [address] [place], [address] Eosinophils/100 WBC (Bld) 2.0 % Normal 0-5 [facility] Comment on above: Performed By: #### L 500.4050, L500.4100, L3400.4600, L100.0100, L501.9520 #### [facility] [address] [place], [address] Erythrocyte distribution width (RBC) [Ratio] 12.8 % Normal 11.6-14.6 [facility] Comment on above: Performed By: #### L 500.4050, L500.4100, L3400.4600, L100.0100, L501.9520 #### [facility] [address] [place], [address] Hematocrit (Bld) [Volume fraction] 39.7 % Normal 37-47 [facility] Comment on above: Performed By: #### L 500.4050, L500.4100, L3400.4600, L100.0100, L501.9520 #### [facility] [address] [place], [address] Hemoglobin (Bld) [Mass/Vol] 13.2 g/dL Normal 12.0-15.0 [facility] Comment on above: Performed By: #### L 500.4050, L500.4100, L3400.4600, L100.0100, L501.9520 #### [facility] [address] [place], [address] IG% 0.400 Normal 0.0-0.9 [facility] Comment on above: Result Comment: IG% - Immature Granulocytes (promyelocytes, myelocytes and metamyelocytes) > 1% indicates that a LEFT SHIFT is Present. Performed By: #### L 500.4050, L500.4100, L3400.4600, L100.0100, L501.9520 #### [facility] [address] [place], [address] Lymphocytes/100 WBC (Bld) 25.5 % Normal 19-41 [facility] Comment on above: Performed By: #### L 500.4050, L500.4100, L3400.4600, L100.0100, L501.9520 #### [facility] [address] [place], [address] MCH (RBC) [Entitic mass] 29.1 pg Normal 27.0-32.0 [facility] Comment on above: Performed By: #### L 500.4050, L500.4100, L3400.4600, L100.0100, L501.9520 #### [facility] [address] [place], [address] MCHC (RBC) [Mass/Vol] 33.2 g/dL Normal 32-36 [facility] Comment on above: Performed By: #### L 500.4050, L500.4100, L3400.4600, L100.0100, L501.9520 #### [facility] [address] [place], [address] MCV (RBC) [Entitic vol] 87.6 fL Normal 81-99 [facility] Comment on above: Performed By: #### L 500.4050, L500.4100, L3400.4600, L100.0100, L501.9520 #### [facility] [address] [place], [address] Monocytes/100 WBC (Bld) 6.8 % Normal 0-10 [facility] Comment on above: Performed By: #### L 500.4050, L500.4100, L3400.4600, L100.0100, L501.9520 #### [facility] [address] [place], [address] Neutrophils/100 WBC (Bld) 64.5 % Normal 47-70 [facility] Comment on above: Performed By: #### L 500.4050, L500.4100, L3400.4600, L100.0100, L501.9520 #### [facility] [address] [place], [address] Nucleated RBC (Bld) [#/Vol] 0 10*3/uL Normal 0-5 [facility] Comment on above: Performed By: #### L 500.4050, L500.4100, L3400.4600, L100.0100, L501.9520 #### [facility] [address] [place], [address] Platelet mean volume (Bld) [Entitic vol] 8.9 fL Normal 6.2-12.0 [facility] Comment on above: Performed By: #### L 500.4050, L500.4100, L3400.4600, L100.0100, L501.9520 #### [facility] [address] [place], [address] Platelets (Bld) [#/Vol] 279 10*3/uL Normal 150-450 [facility] Comment on above: Performed By: #### L 500.4050, L500.4100, L3400.4600, L100.0100, L501.9520 #### [facility] [address] [place], [address] RBC (Bld) [#/Vol] 4.53 10*6/uL Normal 4.2-5.4 [facility] Comment on above: Performed By: #### L 500.4050, L500.4100, L3400.4600, L100.0100, L501.9520 #### [facility] [address] [place], [address] RDW SD 41.1 fl Normal 35.1-43.9 [facility] Comment on above: Performed By: #### L 500.4050, L500.4100, L3400.4600, L100.0100, L501.9520 #### [facility] [address] [place], [address] WBC (Bld) [#/Vol] 5.0 10*3/uL Normal 4.4-11.0 [facility] Comment on above: Performed By: #### L 500.4050, L500.4100, L3400.4600, L100.0100, L501.9520 #### [facility] [address] [place], [address] Comprehensive Metabolic Prof [facility] 07-01-2025 Albumin [Mass/Vol] 4.4 g/dL Normal 3.4-4.8 [facility] Comment on above: Performed By: #### L 500.4050, L500.4100, L3400.4600, L100.0100, L501.9520 #### [facility] [address] [place], [address] Albumin/Globulin [Mass ratio] 1.5 {ratio} Normal 0.9-2.4 [facility] Comment on above: Performed By: #### L 500.4050, L500.4100, L3400.4600, L100.0100, L501.9520 #### [facility] [address] [place], [address] ALK PHOS 92 U/L Normal 35-104 [facility] Comment on above: Performed By: #### L 500.4050, L500.4100, L3400.4600, L100.0100, L501.9520 #### [facility] [address] [place], [address] ALT [Catalytic activity/Vol] 36 U/L High <=34 [facility] Comment on above: Performed By: #### L 500.4050, L500.4100, L3400.4600, L100.0100, L501.9520 #### [facility] [address] [place], [address] AST [Catalytic activity/Vol] 36 U/L High <=31 [facility] Comment on above: Performed By: #### L 500.4050, L500.4100, L3400.4600, L100.0100, L501.9520 #### [facility] [address] [place], [address] Bilirubin [Mass/Vol] 0.95 mg/dL Normal 0.00-1.30 [facility] Comment on above: Performed By: #### L 500.4050, L500.4100, L3400.4600, L100.0100, L501.9520 #### [facility] [address] [place], [address] BUN/CRE 19.2 RATIO Normal 10-20 [facility] Comment on above: Performed By: #### L 500.4050, L500.4100, L3400.4600, L100.0100, L501.9520 #### [facility] [address] [place], [address] Calcium [Mass/Vol] 9.7 mg/dL Normal 7.6-11.0 [facility] Comment on above: Performed By: #### L 500.4050, L500.4100, L3400.4600, L100.0100, L501.9520 #### [facility] [address] [place], [address] Chloride [Moles/Vol] 104 mmol/L Normal 98-108 [facility] Comment on above: Performed By: #### L 500.4050, L500.4100, L3400.4600, L100.0100, L501.9520 #### [facility] [address] [place], [address] CO2 [Moles/Vol] 25.7 mmol/L Normal 21.0-32.0 [facility] Comment on above: Performed By: #### L 500.4050, L500.4100, L3400.4600, L100.0100, L501.9520 #### [facility] [address] [place], [address] Creatinine [Mass/Vol] 0.72 mg/dL Normal 0.70-1.20 [facility] Comment on above: Performed By: #### L 500.4050, L500.4100, L3400.4600, L100.0100, L501.9520 #### [facility] [address] [place], [address] GAP 11 Normal 5-15 [facility] Comment on above: Performed By: #### L 500.4050, L500.4100, L3400.4600, L100.0100, L501.9520 #### [facility] [address] [place], [address] GFR/1.73 sq M.predicted among non-blacks MDRD (S/P/Bld) [Vol rate/Area] 96 mL/min/{1.73_m2} Normal >60 [facility] Comment on above: Result Comment: mL/m in/1.73m2 CKD-EPI Creatinine Equation (2020) Performed By: #### L 500.4050, L500.4100, L3400.4600, L100.0100, L501.9520 #### [facility] [address] [place], [address] Globulin (S) [Mass/Vol] 3.0 g/dL Normal 2.2-4.2 [facility] Comment on above: Performed By: #### L 500.4050, L500.4100, L3400.4600, L100.0100, L501.9520 #### [facility] [address] [place], [address] Glucose [Mass/Vol] 91 mg/dL Normal 70-99 [facility] Comment on above: Performed By: #### L 500.4050, L500.4100, L3400.4600, L100.0100, L501.9520 #### [facility] [address] [place], [address] Potassium [Moles/Vol] 4.2 mmol/L Normal 3.3-5.1 [facility] Comment on above: Performed By: #### L 500.4050, L500.4100, L3400.4600, L100.0100, L501.9520 #### [facility] [address] [place], [address] Sodium [Moles/Vol] 141 mmol/L Normal 133-145 [facility] Comment on above: Performed By: #### L 500.4050, L500.4100, L3400.4600, L100.0100, L501.9520 #### [facility] [address] [place], [address] T PROT 7.4 g/dL Normal 5.9-8.4 [facility] Comment on above: Performed By: #### L 500.4050, L500.4100, L3400.4600, L100.0100, L501.9520 #### [facility] [address] [place], [address] Urea nitrogen [Mass/Vol] 14 mg/dL Normal 4-19 [facility] Comment on above: Performed By: #### L 500.4050, L500.4100, L3400.4600, L100.0100, L501.9520 #### [facility] [address] [place], [address] Internal Medicine Office Vis iton 07-01-2025 Internal Medicine Office Visit [facility] [address] [place] [address] [place] [address] OFFICE VISIT Date of Service: 07/01/25 MR#: [id number] Acct: [id number] Name: AURELIO POOLE I Rep #: [id number] : 1965 Provider: Dr. Lucía heard MD Age/Sex: 59/F Location: [facility] Status: Signed Intake Vital Signs 07/15/24 10:36 10/29/24 09:21 07/01/25 09:03 Height 5 ft 4 in 5 ft 4 in 5 ft 4 in Weight: 178 lb BMI 30.5 BP 152/84 H Blood Pressure Location Lt brachial Position Sitting Respiration 18 Pulse 61 Pulse Source Monitor Temp 96.8 F L Temp Source Temporal Pulse Oximetry (%) 97 Oxygen Delivery Method room air Intake Visit Reasons: YEARLY Chief Complaint: FU Chronic Condition Is patient in pain?: No Allergies Penicillins Allergy (Intermediate, Verified 07/01/25 09:04) Hives and Rash Medications ???Medication ???Instructions ???Recorded ???Confirmed ???Type calcium carbonate (Calcium 600) 600 mg PO DAILY 10/30/19 07/01/25 History cholecalciferol (vitamin D3) 125 unit PO 10/30/19 07/01/25 History mcg (5,000 unit) disintegrating tablet fluticasone propionate 50 1 spray intranasal DAILY 10/30/19 07/01/25 History mcg/actuation nasal spray,suspension (Flonase Allergy Relief) ibuprofen 200 mg tablet (Advil) 200 mg PO Q6H PRN 10/30/19 5 History cyanocobalamin (vitamin B-12) 1,000 mcg PO DAILY 05/17/21 History 1,000 mcg tablet (Vitamin B-12) levothyroxine 25 mcg tablet 25 mcg PO QDAY #120 tabs 03/25/25 07/01/25 Rx amlodipine 5 mg tablet 5 mg PO QDAY #30 tabs 07/01/2505/18 Rx rosuvastatin 20 mg tablet 20 mg PO QDAY #30 tabs 07/01/25 Rx PFSH Medical History (Updated 07/01/25 @ 12:[address] Lucía Sorto MD) Flu vaccine need Finger pain, left Palpitations Family history of early CAD Hypertension Elevated blood-pressure reading without diagnosis of hypertension Vitamin D deficiency Hypothyroidism Stress fracture, left foot, initial encounter for fracture Hx of emotional problems Carpal tunnel syndrome Hyperlipemia Seasonal allergies Surgical History Hx of LASIK Hx of foot surgery Hx of removal of cyst History of carpal tunnel surgery Family History Other CVA (cerebral vascular accident) Heart disease Hyperlipemia Hypertension Myocardial infarction Osteoporosis Social History adopted: No household members: spouse number of children: 2 current occupational status: unemployed pets and animals: No sexually active: Yes Smoking Status: Never smoker alcohol intake: never substance use type: does not use caffeine: Yes (2) Type: carbonated beverages what type of physical activity do you participate in: walking frequency: 3-4 times per week do you feel safe at home: Yes 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 She reports a long-standing history of heart fluttering, which occurs approximately one to two times per month. The episodes catch her off guard and make her feel a little funny, but she is a ble to manage them with deep breaths. She considers stress a possible trigger for these palpitations. The patient notes her blood pressure has been elevated She agrees with starting a low-dose blood pressure medication and admits she is not consistent with checking her blood pressure at home. She r eports being physically active, having biked 1200 miles this year. The patient has a significant family history of cardiovascular disease. Both of her parents from massive heart attacks; her father was in his early 60s and had a known history of heart issues for which he eventually refused treatment. Among her eight siblings, a sister had a stroke around age 50, and a brother had a heart attack at age 51. The family has no history of diabetes. The patient takes simvastatin, and her prior cholesterol and TSH levels have been good. She has recently received her flu shot. She also reports a new issue with pain in her left finger, which hurts if bumped, along with generalized hand stiffness. Attestation: Documentation on this patient encounter was supported using ambient scribe technology/ voice AI technology. The patient consented to recording for the purpose of documenting the encounter. Provider reviewed content of the generated note prior to signature. ROS Const Constitutiona (more content not included)... Normal [facility] Lipid Profileon 07-01-2025 CHOL:HDL 3.64 Normal [facility] Comment on above: Performed By: #### L 500.4050, L500.4100, L3400.4600, L100.0100, L501.9520 #### [facility] [address] [facility], [address] Cholesterol [Mass/Vol] 192 mg/dL Normal <=200 [facility] Comment on above: Result Comment: Chol esterol level, Desirable <200 mg/dL Borderline high cholesterol 200-239 mg/dL High cholesterol >=240 mg/dL Recommendations of the NCEP Adult Treatment Panel for the following risk-cutoff thresholds for the [place] population. Performed By: #### L 500.4050, L500.4100, L3400.4600, L100.0100, L501.9520 #### [facility] [address] [place], [address] Cholesterol in HDL [Mass/Vol] 53 mg/dL Normal [facility] Comment on above: Result Comment: Sarah onal Cholesterol Education Program (NCEP) guidelines: <40 mg/dL: Low HDL-cholesterol (major risk factor for CHD) >= 60 mg/dL: High HDL-cholesterol (negative risk factor for CHD) HDL-cholesterol is affected by a number of factors, e.g. smoking, exercise, hormones, sex and age. Performed By: #### L 500.4050, L500.4100, L3400.4600, L100.0100, L501.9520 #### [facility] [address] [place], [address] Cholesterol in LDL [Mass/Vol] 116 mg/dL Normal [facility] Comment on above: Result Comment: Bord lhdqgd=931-904 mg/dL Higher Shfa=402 mg/dL or greater Friedwald Equation for LDL-C Performed By: #### L 500.4050, L500.4100, L3400.4600, L100.0100, L501.9520 #### [facility] [address] [place], [address] Cholesterol in VLDL [Mass/Vol] 23 mg/dL Normal 5-40 [facility] Comment on above: Performed By: #### L 500.4050, L500.4100, L3400.4600, L100.0100, L501.9520 #### [facility] [address] [place], [address] Triglyceride [Mass/Vol] 116 mg/dL Normal [facility] Comment on above: Result Comment: The drugs N-Acetylcysteine and Metamizole may falsely depress this assay. Normal range: <150 mg/dL Borderline High: 150-199 mg/dL High: 200-499 mg/dL Very High: >500 mg/dL Performed By: #### L 500.4050, L500.4100, L3400.4600, L100.0100, L501.9520 #### [facility] [address] [place], [address] Thyroid Stim Hormone (TSH)on 07-01-2025 TSH 4.710 uIU/mL High 0.300-4.200 [facility] Comment on above: Performed By: #### L 500.4050, L500.4100, L3400.4600, L100.0100, L501.9520 ####[facility] [id number] [place], [address] TSH DL <= 0.005 mIU/L QnOrde red By: Lucía Sorto on 03-18-2025 TSH Qn 3.600 uIU/mL 0.300-4.200 [facility] Thyroid Stim Hormone (TSH)on 03-18-2025 TSH 3.600 uIU/mL Normal 0.300-4.200 [facility] Comment on above: Performed By: #### L 501.9520 ####[facility] [address] [place], [address] TSH DL <= 0.005 mIU/L QnOrde red By: Lucía Sorto on 01-13-2025 Thyroid Stimulating Hormone (TSH) 4.380 uIU/mL High 0.300-4.200 [facility] TSH Qn 4.380 uIU/mL High 0.300-4.200 [facility] Thyroid Stim Hormone (TSH)on 01-13-2025 TSH 4.380 uIU/mL High 0.300-4.200 [facility] Comment on above: Performed By: #### L 501.9520 ####[facility] [id number] [place], [address] Internal Medicine Office Vis iton 12-08-2024 Internal Medicine Office Visit [facility] [address] [place] [address] [place] [address] OFFICE VISIT Date of Service: 12/08/24 MR#: [id number] Acct: [id number] Name: AURELIO POOLE I Rep #: [id number] : 1965 Provider: MARINA NURSE Age/Sex: 59/F Location: [facility] [place] Status: Signed Intake Vital Signs 10/29/24 09:21 12/08/24 09:25 12/08/24 09:25 12/08/24 09:25 Height 5 ft 4 in Weight: 181 lb 2 oz BMI 31.1 BP 150/85 H 162/84 H 161/87 H 132/88 H Blood Pressure Location Lt brachial Lt brachial Lt brachial Position Sitting Sitting Sitting Intake Visit Reasons: BP MONITOR CHECK Allergies Penicillins Allergy (Intermediate, Verified 10/29/24 09:31) Hives and Rash Nurse's Note: Here for bp machine check, states she has some more stress than usual lately. Has been getting higher readings at home and brought log in last week. Denies chest pain, headache, blurred vision upon high readings states she sometimes has a funny feeling in her head when it's high. Her readin/87 Mine 162/84. Reading after sitting 7 minutes 132/88 [facility] Medical History (Updated 12/12/24 @ 12:[address] Lucía Sorto MD) Elevated blood-pressure reading without diagnosis of hypertension Vitamin D deficiency Hypothyroidism Stress fracture, left foot, initial encounter for fracture Hx of emotional problems Carpal tunnel syndrome Hyperlipemia Seasonal allergies Surgical History Hx of LASIK Hx of foot surgery Hx of removal of cyst History of carpal tunnel surgery Family History Other CVA (cerebral vascular accident) Heart disease Hyperlipemia Hypertension Myocardial infarction Osteoporosis Social History adopted: No household members: spouse number of children: 2 current occupational status: unemployed pets and animals: No sexually active: Yes Smoking Status: Never smoker alcohol intake: never substance use type: does not use caffeine: Yes (2) Type: carbonated beverages what type of physical activity do you participate in: walking frequency: 3-4 times per week do you feel safe at home: Yes 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 12/12/24 1255 Date Lucía Tatum Signature: Date (if applicable) CC: Normal [facility] T4 Free Directon 12-03-2024 T4 FREE DIRECT 0.90 ng/dL Normal 0.76-1.46 [facility] Comment on above: Performed By: #### L 501.9520, L506.0400 #### [facility] [address] [place], [place], [address] T4 freeOrdered By: Lucía Sorto on 12-03-2024 Free T4 [Mass/Vol] 0.90 ng/dL 0.76-1.46 [facility] TSH DL <= 0.005 mIU/L QnOrde red By: Lucía Sorto on 12-03-2024 Thyroid Stimulating Hormone (TSH) 3.160 uIU/mL 0.300-4.200 [facility] TSH Qn 3.160 uIU/mL 0.300-4.200 [facility] Thyroid Stim Hormone (TSH)on 12-03-2024 TSH 3.160 uIU/mL Normal 0.300-4.200 [facility] Comment on above: Performed By: #### L 501.9520, L506.0400 #### [facility] [address] 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 Is patient in pain?: No Allergies Penicillins Allergy (Intermediate, Verified 10/29/24 09:31) Hives and Rash Medications ???Medication ???Instructions ???Recorded ???Confirmed ???Type calcium carbonate (Calcium 600) 600 mg PO DAILY 10/30/19 10/29/24 History cholecalciferol (vitamin D3) 125 unit PO 10/30/19 10/29/24 History mcg (5,000 unit) disintegrating tablet fluticasone propionate 50 1 spray intranasal DAILY 10/30/19 10/29/24 History mcg/actuation nasal spray,suspension (Flonase Allergy Relief) ibuprofen 200 mg tablet (Advil) 200 mg PO Q6H PRN 10/30/19 5 History cyanocobalamin (vitamin B-12) 1,000 mcg PO DAILY 05/17/21 History 1,000 mcg tablet (Vitamin B-12) thyroid (pork) 30 mg tablet (CARBONATION EQUIPMENT TENDER mg PO 06/27/23 10/29/24 History Thyroid) simvastatin 20 mg tablet 20 mg PO QHS #90 tabs 07/30/2402/15 Rx PFSH Medical History Vitamin D deficiency Hypothyroidism Stress fracture, left foot, initial encounter for fracture Hx of emotional problems Carpal tunnel syndrome Hyperlipemia Seasonal allergies Surgical History Hx of LASIK Hx of foot surgery Hx of removal of cyst History of carpal tunnel surgery Family History Other CVA (cerebral vascular accident) Heart disease Hyperlipemia Hypertension Myocardial infarction Osteoporosis Social History adopted: No household members: spouse number of children: 2 current occupational status: unemployed pets and animals: No sexually active: Yes Smoking Status: Never smoker alcohol intake: never substance use type: does not use caffeine: Yes (2) Type: carbonated beverages what type of physical activity do you participate in: walking frequency: 3-4 times per week do you feel safe at home: Yes 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 Note slightly elevated BP today. Denies other concerns Last PAP: 11/11/21 History of abnormal PAP: no Last mammogram: 08/07/24 History of abnormal mammogram: no Colon cancer screening: Dr Eric Other preventative health care screenings: PCP Female Reproductive History Menopausal Treatment: No HRT, No Vaginal Estrogen, No Osphena, No OTC treatments and No prescription non-hormonal treatment ROS Const Constitutional: Denies fatigue, weight gain or weight loss Cardio Card: Denies chest pain Resp Resp: Denies cough or dyspnea on exertion GI GI: Denies abdominal pain, bloating, change in stool character, constipation or vomiting : Reports as per HPI; Denies difficulty voiding, pelvic pain, urinary frequency, urinary incontinence, urinary urgency, vaginal discharge or vaginal pruritus Exam Const General: cooperative, healthy appearing, no acute distress and well developed Orientation: alert, oriented to person and oriented to place HENCA Head: normal to inspection Neck Neck: normal visual inspection Thyroid: thyroid normal Lymphatic: no lymphadenopathy noted Chest Breast inspection: normal inspection of the breasts and normal inspection of the axillae Breast palpation: normal palpation of the breasts, normal palpation of the axillae and no axillary lymphadenopathy Resp Effort Inspection: normal respiratory effort GI Palpation: soft, no masses and nontender Rectal Exam: deferred External Female Exam: normal external appearance and normal appearance of the urethra Urethra: normal appearance of the urethra and normal palpation Speculum Exam - Vagina: normal vaginal discharge and vagina atrophic (mild) Speculum Exam - Cervix: normal appearance of the cervix Bimanual Exam- Vagina Uterus: normal bimanual exam, uterine size normal, uterine shape normal and non-tender Bimanual Exam- Adnexa, other: normal adnexae, no masses, normal and non-tender Pelvic Support: normal Neuro General: patient alert and patient oriented x3 Psych Affect: normal affect Coding Level of Care Code Off vis,est,prev 40-64yrs Diagn (more content not included)... Normal [facility] SCRN MAMM (CAD)W/MINI BILATo n 08-07-2024 SCRN MAMM (CAD)W/MINI BILAT [facility] Imaging Services [address] [place] [address] SCRN MAMM (CAD)W/MINI BILAT MR#: [id number] Acct: [id number] Name: AURELIO POOLE I Rep #: [id number] : 1965 F 58 From: Moi nesbitt MD PCP: Dr. Lucía Sorto MD Status: REG [facility] Study: SCRN MAMM (CAD)W/MINI BILAT Date of Exam: 07/25 01/15 Exam# [id number] Ordering Dr: Paz Campos CARBONATION EQUIPMENT TENDER CARBONATION EQUIPMENT TENDER -C 3:[id number] MAMMOGRAPHY - BILATERAL SCREENING REASON FOR EXAM: Female, 58 years old. Routine annual screening examination. PERTINENT HISTORY: Non-contributory. TECHNIQUE: Digital bilateral breast mini (3D mammographic acquisition) in the CC and MLO projections. 2-D mediolateral oblique (MLO) and craniocaudad (CC) views of both breasts were obtained. CAD: Full Field Digital Mammography with Computer Added Detection was performed. COMPARISON: Comparison is made with prior study dated August 06, 2023 and May 05, 2022. FINDINGS: Breast Composition: The breasts are heterogeneously dense, which may obscure small masses. There are no dominant masses or suspicious calcifications. No other significant abnormalities are identified. There has been no significant change since the prior study. BI/SCRN MAMM (CAD)W/MINI BILAT IMPRESSION: Stable bilateral screening mammogram. Yearly follow-up mammogram recommended. (A) ASSESSMENT CATEGORY: BIRADS Category 1: Negative. A letter regarding these results will be sent to the patient by the facility within 30 days. Approximately 10% of breast cancers are not detected by mammography. A normal mammogram should not delay biopsy of a clinically suspicious abnormality. [id number] Electronically Signed: Moi Reddy MD at 13:14 EST , CC: MARLENA Campos; Dr. Lucía Sorto MD Index Clerk: Signed Normal [facility] Absolute lymphocyte countOrd ered By: Lucía Sorto on 06-27-2023 Lymphocytes Auto (Unsp spec) [#/Vol] 1.60 10*3/uL 0.83-4.51 [facility] Basophil percentageOrdered B y: Lucía Sorto on 06-27-2023 Basophils/100 WBC (Bld) 0.7 % 0-1 [facility] Bilirubin [Mass/Vol] 1.10 mg/dL 0.20-1.00 [facility] Comment on above: For patients on eltr ombopag therapy, use of Dimension [place] TBIL is not recommended. Chloride [Moles/Vol] 106 mmol/L 98-107 [facility] Cholesterol [Mass/Vol] 158 mg/dL <200 [facility] Comment on above: <200 mg/dL Desirable 200-240 mg/dL Borderline >240 mg/dL High Risk Eosinophils/100 WBC (Bld) 2.4 % 0-5 [facility] Glucose [Mass/Vol] 92 mg/dL 74-106 [facility] Neutrophils (Bld) [#/Vol] 5.0 10*3/uL 2.0-7.7 [facility] Neutrophils/100 WBC (Bld) 67.1 % 47-70 [facility] Potassium [Moles/Vol] 4.3 mmol/L 3.5-5.1 [facility] Protein [Mass/Vol] 7.3 g/dL 6.4-8.2 [facility] Sodium [Moles/Vol] 137 mmol/L 136-145 [facility] Triglyceride [Mass/Vol] 186 mg/dL <199 [facility] Comment on above: The drugs N-Acetylcy steine and Metamizole may falsely depress this assay.Serum Triglycerides Reference Interval Normal <150 mg/dL Borderline high 150 - 199 mg/dL High 200 - 499 mg/dL Very High > or = 500 mg/dL WBC (Bld) [#/Vol] 7.5 10*3/uL 4.4-11.0 [facility] Blood erythrocytes count (nu mber/volume)Ordered By: Lucía Sorto on 06-27-2023 RBC (Bld) [#/Vol] 4.70 10*6/uL 4.2-5.4 [facility] Blood hemoglobin measurement (mass/volume)Ordered By: Lucía Sorto on 06-27-2023 Hemoglobin (Bld) [Mass/Vol] 13.7 g/dL 12.0-15.0 [facility] Blood lymphocytes/100 leukoc ytesOrdered By: Lucía Sorto on 06-27-2023 Lymphocytes/100 WBC (Bld) 21.4 % 19-41 [facility] Blood monocytes/100 leukocyt esOrdered By: Lucía Sorto on 06-27-2023 Monocytes/100 WBC (Bld) 8.0 % 0-10 [facility] Blood platelet mean volumeOr dered By: Lucía Sorto on 06-27-2023 Platelet mean volume (Bld) [Entitic vol] 8.7 fL 6.2-12.0 [facility] Determination of erythrocyte mean corpuscular volume (MCV)Ordered By: Lucía Sorto on 06-27-2023 MCV (RBC) [Entitic vol] 89.4 fL 81-99 [facility] Hematocrit Auto (Bld) [Volum e fraction]Ordered By: Lucía Sorto on 06-27-2023 Hematocrit (Bld) [Volume fraction] 42.0 % 37-47 [facility] - Chemistry and C hemistry - challengeOrdered By: Lucía Sorto on 06-27-2023 ALP [Catalytic activity/Vol] 82 U/L 45-117 [facility] ALT [Catalytic activity/Vol] 30 U/L 13-56 [facility] CO2 [Moles/Vol] 29.0 mmol/L 21.0-32.0 [facility] Free T4 [Mass/Vol] 0.74 ng/dL 0.76-1.46 [facility] Globulin (S) [Mass/Vol] 3.4 g/dL 2.2-4.2 [facility] Urea nitrogen/Creatinine [Mass ratio] 18.5 mg/mg 10-20 [facility] - Hematology and Cell countsOrdered By: Lucía Sorto on 06-27-2023 Erythrocyte distribution width (RBC) [Entitic vol] 42.5 fL 35.1-43.9 [facility] Erythrocyte distribution width (RBC) [Ratio] 13.0 % 11.6-14.6 [facility] Immature granulocytes/100 WBC (Bld) 0.400 % 0.0-0.9 [facility] Comment on above: IG% - Immature Granu locytes (promyelocytes, myelocytes and metamyelocytes) > 1% indicates that a LEFT SHIFT is Present. MCH (RBC) [Entitic mass] 29.1 pg 27.0-32.0 [facility] Nucleated RBC/100 WBC (Bld) [Ratio] 0 % 0-5 [facility] MCHC Auto (RBC) [Mass/Vol]Or dered By: Lucía Sorto on 06-27-2023 MCHC (RBC) [Mass/Vol] 32.6 g/dL 32-36 [facility] No Panel InformationOrdered By: Lucía Sorto on 06-27-2023 Estimated GFR (MDRD) Amer 93 mL/min >60 [facility] Comment on above: GFR Calc Estimated GFR (MDRD) Non-Af Amer 77 mL/min >60 [facility] Comment on above: Non- GFR Calc Thyroid Stimulating Hormone (TSH) 2.31 uIU/mL 0.358-3.74 [facility] Platelets bldOrdered By: Raúl richard Macario on 06-27-2023 Platelets (Bld) [#/Vol] 363 10*3/uL 150-450 [facility] Serum or plasma albumin bettye urement (mass/volume)Ordered By: Lucía Sorto on 06-27-2023 Albumin [Mass/Vol] 3.9 g/dL 3.2-5.0 [facility] Serum or plasma albumin/glob ulin mass ratioOrdered By: Lucía Sorto on 06-27-2023 Albumin/Globulin [Mass ratio] 1.1 {ratio} 0.9-2.4 [facility] Serum or plasma calcium bettye urement (mass/volume)Ordered By: Lucía Sorto on 06-27-2023 Calcium [Mass/Vol] 10.1 mg/dL 8.5-10.1 [facility] Serum or plasma cholesterol in HDL measurement (mass/volume)Ordered By: Lucía Sorto on 06-27-2023 Cholesterol in HDL [Mass/Vol] 32 mg/dL >40 [facility] Comment on above: The drugs N-Acetylcy steine and Metamizole may falsely depress this assay. Reference Range HDL <40 mg/dL Low HDL Cholesterol HDL >or= 60 mg/dL High HDL Cholesterol Serum or plasma cholesterol in VLDL measurement (mass/volume)Ordered By: Lucía Sorto on 06-27-2023 Cholesterol in VLDL [Mass/Vol] 37 mg/dL 5-40 [facility] Serum or plasma creatinine m easurement (mass/volume)Ordered By: Lucía Sorto on 06-27-2023 Creatinine [Mass/Vol] 0.81 mg/dL 0.55-1.02 [facility] Comment on above: The validity of the calculated GFR & GFRAA in patients over 70 years has not been determined. Clinical correlation is essential. Serum or plasma low density lipoprotein (LDL) cholesterol measurement (mass/volume)Ordered By: Lucía Sorto on 06-27-2023 Cholesterol in LDL [Mass/Vol] 89 mg/dL 0-130 [facility] Serum or plasma urea nitroge n measurement (mass/volume)Ordered By: Lucía Sorto on 06-27-2023 Urea nitrogen [Mass/Vol] 15 mg/dL 7-18 [facility] Thin prep Papanicolaou smear with manual screeningOrdered By: Lucía Sorto on 06-27-2023 Thin prep Papanicolaou smear with manual screening 19 U/L 15-37 [facility] Thin prep Papanicolaou smear with manual screening 2 5-15 [facility] .GFRon 11-20-2022 GFR >60 Normal Replaced by [facility] [place] Comment on above: Result Comment: GFR Population mean for , Non- Americans Ages 20-29 = 116 mL/min/1.73 sq.m. Ages 30-39 = 107 mL/min/1.73 sq.m. Ages 40-49 = 99 mL/min/1.73 sq.m. Ages 50-59 = 93 mL/min/1.73 sq.m. Ages 60-69 = 85 mL/min/1.73 sq.m. Ages 70+ = 75 mL/min/1.73 sq.m. Chronic Kidney Disease: Less than 60 mL/min/1.73 square meters End Stage Renal Disease: Less than 15 mL/min/1.73 square meters Performed By: #### H GMP, BMP, GFR #### [place] [address] GFR Non- >60 Normal [facility] ([place]) Comment on above: Result Comment: GFR Population mean for , Non- Americans Ages 20-29 = 116 mL/min/1.73 sq.m. Ages 30-39 = 107 mL/min/1.73 sq.m. Ages 40-49 = 99 mL/min/1.73 sq.m. Ages 50-59 = 93 mL/min/1.73 sq.m. Ages 60-69 = 85 mL/min/1.73 sq.m. Ages 70+ = 75 mL/min/1.73 sq.m. Chronic Kidney Disease: Less than 60 mL/min/1.73 square meters End Stage Renal Disease: Less than 15 mL/min/1.73 square meters Performed By: #### H GMP, BMP, GFR #### [address] [address] BMPon 11-20-2022 BUN/Creatinine Ratio 14.3 ratio Normal 10.0-22.0 Replaced by [facility] ([place]) Comment on above: Performed By: #### H GMP, BMP, GFR #### [address] [address] Calcium [Mass/Vol] 9.8 mg/dL Normal 8.7-10.4 [facility] ([place]) Comment on above: Performed By: #### H GMP, BMP, GFR #### [address] [address] Chloride [Moles/Vol] 106 mmol/L Normal 98-110 Replaced by [facility] [place] Comment on above: Performed By: #### H GMP, BMP, GFR #### [address] [address] CO2 [Moles/Vol] 26 mmol/L Normal 22-32 [facility] ([place]) Comment on above: Performed By: #### H GMP, BMP, GFR #### [address] [address] Creatinine [Mass/Vol] 0.70 mg/dL Normal 0.50-1.20 [facility] ([place]) Comment on above: Performed By: #### H GMP, BMP, GFR #### [address] [address] Electrolyte Balance 7.0 mEq/L Normal 4.0-15.0 [facility] ([place]) Comment on above: Performed By: #### H GMP, BMP, GFR #### [address] [address] Glucose [Mass/Vol] 87 mg/dL Normal 70-110 [facility] ([place]) Comment on above: Performed By: #### H GMP, BMP, GFR #### [address] [address] Potassium [Moles/Vol] 4.7 mmol/L Normal 3.5-5.0 [facility] ([place]) Comment on above: Result Comment: Spec imen slightly hemolyzed. Performed By: #### H GMP, BMP, GFR #### [address] [address] Sodium [Moles/Vol] 139 mmol/L Normal 136-145 [facility] ([place]) Comment on above: Performed By: #### H GMP, BMP, GFR #### [address] [address] Urea nitrogen [Mass/Vol] 10.0 mg/dL Normal 8.0-22.0 [facility] ([place]) Comment on above: Performed By: #### H GMP, BMP, GFR #### [address] [address] HGMPon 11-20-2022 Erythrocyte distribution width (RBC) [Ratio] 14.3 % Normal 11.5-15.5 [facility] ([place]) Comment on above: Performed By: #### H GMP, BMP, GFR #### [place] [address] Hematocrit (Bld) [Volume fraction] 41.4 % Normal 34.0-46.0 [facility] ([place]) Comment on above: Performed By: #### H GMP, BMP, GFR #### [place] [address] Hgb 13.6 G/dL Normal 12.0-16.0 [facility] ([place]) Comment on above: Performed By: #### H GMP, BMP, GFR #### [address] [address] MCH (RBC) [Entitic mass] 29.1 pg Normal 27.0-33.0 [facility] ([place]) Comment on above: Performed By: #### H GMP, BMP, GFR #### [address] [address] MCHC 33.0 G/dL Normal 32.0-36.0 [facility] ([place]) Comment on above: Performed By: #### H GMP, BMP, GFR #### [address] [address] MCV (RBC) [Entitic vol] 88.2 fL Normal 80.0-99.0 [facility] ([place]) Comment on above: Performed By: #### H GMP, BMP, GFR #### [address] [address] Platelet 359 10 3/mcL Normal 150-450 [facility] ([place]) Comment on above: Performed By: #### H GMP, BMP, GFR #### [facility] [address] [place] [id number] Platelet mean volume (Bld) [Entitic vol] 7.3 fL Normal 6.6-10.5 [facility] ([place]) Comment on above: Performed By: #### H GMP, BMP, GFR #### [address] [address] RBC 4.70 10 6/mcL Normal 4.10-5.30 [facility] ([place]) Comment on above: Performed By: #### H GMP, BMP, GFR #### [address] [address] WBC 7.2 10 3/mcL Normal 4.5-10.8 [facility] ([place]) Comment on above: Performed By: #### H GMP, BMP, GFR #### [address] [address] US FOOT LTon 07-10-2022 US FOOT LT * * *Final Report* * * DATE OF EXAM: Jul 10 2022 9:26AM LOUISE 1141 - US FOOT LT / PROCEDURE REASON: M84.375D * * * * Physician Interpretation * * * * MSK_US LEFT SECOND AND THIRD INTERMETATARSAL ULTRASOUND: CLINICAL INFORMATION:M84.375D TECHNIQUE: Mendiola-scale real-time ultrasound of the plantar and dorsal intermetatarsal space and adjacent joint spaces with dynamic imaging and power Doppler was performed. Images were archived for documentation. COMPARISON: None FINDINGS: SECOND INTERMETATARSAL SPACE: No Mortons neuroma. No intermetatarsal bursitis. Minimal elongated equivocal thickening of the plantar nerve below size criteria for neuroma. THIRD INTERMETATARSAL SPACE: No Mortons neuroma. Mild intermetatarsal bursitis. SECOND, THIRD, AND FOURTH MTP JOINTS: Plantar joint spaces appear maintained without synovitis. Plantar plates appear intact. INTRINSIC MUSCLES: The adjacent intrinsic muscles show no gross abnormality. FLEXOR TENDONS: Flexor tendons at the MTP joints appear intact. IMPRESSION: MILD THIRD INTERMETATARSAL BURSITIS. NO SECOND OR THIRD INTERMETATARSAL NEUROMA. Index Clerk: PSCB Transcribe Date/Time: Jul 10 2022 9:34A Dictated by : LYNDA DAMIAN MD This examination was interpreted and the report reviewed and electronically signed by: LYNDA DAMIAN MD on Jul 10 2022 9:37AM EST [id number] Normal [facility] CNPNon 06-09-2022 CNPN Telephone (RULTTB) AURELIO POOLE I ([id number]) 1965 F Date Time Provider Department 06/09/22 RHONDA OLIVER RULTTB During your visit today, we recorded the following information about you: Rhonda Oliver 06/09/2022 4:20 PM Addendum Visit Type: ANY MSK Visit Length: 45, 50, OR 60 MINUTES Order Name/Protocol: PLEASE HAVE PT SIGN AUTH OF RELEASE FORM. 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 OUTSIDE ORDER SCANNED INTO CHART/BUILT IN [employer] Preferred Provider: N/A Comment: Please ask if the patient has ever had any prior surgery to their LT FOOT. If so, upgrade the visit type to an MSK1 and notate the surgical hx in the Appointment Note. Location: Depending on the surgical hx, this patient can have this exam performed at any of our three locations. Slot held: N/A Ramo Rojas 06/12/2022 11:31 AM Signed Called patient on 06/12 at 11:29 to schedule their MSK US exam. No answer, left VM, 1st attempt. Rhonda Oliver 06/12/2022 12:34 PM Signed Patient called the MSK US Department back on 06/12/22 at 12:30 pm. Please give this patient a call back to ensure that they receive an appointment. Rhonda Johnsonbreonna 06/12/2022 1:04 PM Signed Called patient on 06/12/22 AT 1:04 PM to schedule their MSK US exam. No answer, left VM. Ramo Rojas 06/12/2022 3:05 PM Signed Pt called back at 2:46, please give this pt a call back to make sure their scheduled for an appt. Rhonda Johnsonbreonna 06/12/2022 3:12 PM Signed Called patient on 06/12/22 at 3:11 pm to schedule their MSK US exam. No answer, left VM. Ramo Rojas 06/12/2022 3:46 PM Signed Pt is scheduled for their MSK US on 07/10 at [facility] Allergies As of Date: 06/09/2022 (Not on File) Date Reviewed: Never Reviewed Reason for Visit: Appointment [186] Problem List As Of Date: 06/09/2022 (None) Encounter Status:Closed by RAMO ROJAS on 06/12/22 Normal [facility] Absolute lymphocyte counton 05-01-2022 Lymphocytes Auto (Unsp spec) [#/Vol] 1.56 10*3/uL 0.83-4.51 [facility] Work Phone: Basophil percentageon 2021 Basophils/100 WBC (Bld) 0.6 % 0-1 [facility] Work Phone: Bilirubin [Mass/Vol] 1.30 mg/dL 0.20-1.00 [facility] Work Phone: Comment on above: For patients on eltr ombopag therapy, use of Dimension [place] TBIL is not recommended. Chloride [Moles/Vol] 106 mmol/L 98-107 [facility] Work Phone: Cholesterol [Mass/Vol] 164 mg/dL <200 [facility] Work Phone: Comment on above: <200 mg/dL Desirable 200-240 mg/dL Borderline >240 mg/dL High Risk Eosinophils/100 WBC (Bld) 1.8 % 0-5 [facility] Work Phone: Glucose [Mass/Vol] 90 mg/dL 74-106 [facility] Work Phone: Neutrophils (Bld) [#/Vol] 4.6 10*3/uL 2.0-7.7 [facility] Work Phone: Neutrophils/100 WBC (Bld) 67.4 % 47-70 [facility] Work Phone: Potassium [Moles/Vol] 4.5 mmol/L 3.5-5.1 [facility] Work Phone: Protein [Mass/Vol] 7.2 g/dL 6.4-8.2 [facility] Work Phone: Sodium [Moles/Vol] 138 mmol/L 136-145 [facility] Work Phone: Triglyceride [Mass/Vol] 145 mg/dL <199 [facility] Work Phone: Comment on above: The drugs N-Acetylcy steine and Metamizole may falsely depress this assay.Serum Triglycerides Reference Interval Normal <150 mg/dL Borderline high 150 - 199 mg/dL High 200 - 499 mg/dL Very High > or = 500 mg/dL WBC (Bld) [#/Vol] 6.8 10*3/uL 4.4-11.0 [facility] Work Phone: Blood erythrocytes count (nu mber/volume)on 05-01-2022 RBC (Bld) [#/Vol] 4.54 10*6/uL 4.2-5.4 [facility] Work Phone: Blood hemoglobin measurement (mass/volume)on 05-01-2022 Hemoglobin (Bld) [Mass/Vol] 13.5 g/dL 12.0-15.0 [facility] Work Phone: Blood lymphocytes/100 leukoc yteson 05-01-2022 Lymphocytes/100 WBC (Bld) 22.9 % 19-41 [facility] Work Phone: Blood monocytes/100 leukocyt eson 05-01-2022 Monocytes/100 WBC (Bld) 7.0 % 0-10 [facility] Work Phone: Blood platelet mean volumeon 05-01-2022 Platelet mean volume (Bld) [Entitic vol] 8.8 fL 6.2-12.0 [facility] Work Phone: [phone] Determination of erythrocyte mean corpuscular volume (MCV)on 05-01-2022 MCV (RBC) [Entitic vol] 89.2 fL 81-99 [facility] Work Phone: [phone] Hematocrit Auto (Bld) [Volum e fraction]on 05-01-2022 Hematocrit (Bld) [Volume fraction] 40.5 % 37-47 [facility] Work Phone: [phone] Laboratory - Chemistry and C hemistry - challengeon 05-01-2022 ALP [Catalytic activity/Vol] 81 U/L 45-117 [facility] Work Phone: [phone] ALT [Catalytic activity/Vol] 33 U/L 13-56 [facility] Work Phone: [phone] CO2 [Moles/Vol] 27.0 mmol/L 21.0-32.0 [facility] Work Phone: [phone] Globulin (S) [Mass/Vol] 3.5 g/dL 2.2-4.2 [facility] Work Phone: [phone] Urea nitrogen/Creatinine [Mass ratio] 13.9 mg/mg 10-20 [facility] Work Phone: [phone] Laboratory - Hematology and Cell countson 05-01-2022 Erythrocyte distribution width (RBC) [Entitic vol] 42.2 fL 35.1-43.9 [facility] Work Phone: [phone] Erythrocyte distribution width (RBC) [Ratio] 13.0 % 11.6-14.6 [facility] Work Phone: [phone] Immature granulocytes/100 WBC (Bld) 0.300 % 0.0-0.9 [facility] Work Phone: [phone] Comment on above: IG% - Immature Granu locytes (promyelocytes, myelocytes and metamyelocytes) > 1% indicates that a LEFT SHIFT is Present. MCH (RBC) [Entitic mass] 29.7 pg 27.0-32.0 [facility] Work Phone: Nucleated RBC/100 WBC (Bld) [Ratio] 0 % 0-5 [facility] Work Phone: [phone] MCHC Auto (RBC) [Mass/Vol]on 05-01-2022 MCHC (RBC) [Mass/Vol] 33.3 g/dL 32-36 [facility] Work Phone: No Panel Informationon 05-01 Estimated GFR (MDRD) Amer 96 mL/min >60 [facility] Work Phone: Comment on above: GFR Calc Estimated GFR (MDRD) Non-Af Amer 80 mL/min >60 [facility] Work Phone: Comment on above: Non- GFR Calc Platelets bldon 05-01-2022 Platelets (Bld) [#/Vol] 339 10*3/uL 150-450 [facility] Work Phone: [phone] Serum or plasma albumin bettye urement (mass/volume)on 05-01-2022 Albumin [Mass/Vol] 3.7 g/dL 3.2-5.0 [facility] Work Phone: [phone] Serum or plasma albumin/glob ulin mass ratioon 05-01-2022 Albumin/Globulin [Mass ratio] 1.1 {ratio} 0.9-2.4 [facility] Work Phone: [phone] Serum or plasma calcium bettye urement (mass/volume)on 05-01-2022 Calcium [Mass/Vol] 9.3 mg/dL 8.5-10.1 [facility] Work Phone: [phone] Serum or plasma cholesterol in HDL measurement (mass/volume)on 05-01-2022 Cholesterol in HDL [Mass/Vol] 37 mg/dL >40 [facility] Work Phone: [phone] Comment on above: The drugs N-Acetylcy steine and Metamizole may falsely depress this assay. Reference Range HDL <40 mg/dL Low HDL Cholesterol HDL >or= 60 mg/dL High HDL Cholesterol Serum or plasma cholesterol in VLDL measurement (mass/volume)on 05-01-2022 Cholesterol in VLDL [Mass/Vol] 29 mg/dL 5-40 [facility] Work Phone: Serum or plasma creatinine m easurement (mass/volume)on 05-01-2022 Creatinine [Mass/Vol] 0.79 mg/dL 0.55-1.02 [facility] Work Phone: Comment on above: The validity of the calculated GFR & GFRAA in patients over 70 years has not been determined. Clinical correlation is essential. Serum or plasma low density lipoprotein (LDL) cholesterol measurement (mass/volume)on 05-01-2022 Cholesterol in LDL [Mass/Vol] 98 mg/dL 0-130 [facility] Work Phone: Serum or plasma urea nitroge n measurement (mass/volume)on 05-01-2022 Urea nitrogen [Mass/Vol] 11 mg/dL 7-18 [facility] Work Phone: Thin prep Papanicolaou smear with manual screeningon 05-01-2022 Thin prep Papanicolaou smear with manual screening 26 U/L 15-37 [facility] Work Phone: Thin prep Papanicolaou smear with manual screening 5 5-15 [facility] Work Phone: Vital Signs Date Time Vital Sign Value Performing Clinician Facility 07-09-2025 11:16-0400 Body height 163 cm Ryan Chaudhry MD Work Phone: [facility] 07-09-2025 11:16040 Body height 162.56 cm Ryan Chaudhry MD Work Phone: [facility] 07-09-2025 11:16-0400 Body mass index (BMI) [Ratio] 30.49 kg/m2 Ryan Chaudhry MD Work Phone: [facility] 07-09-2025 11:16-0400 Body weight 80 kg Ryan Chaudhry MD Work Phone: [facility] 07-09-2025 11:16-0400 Body weight 80.29 kg Ryan Chaudhry MD Work Phone: [facility] 07-09-2025 11:16-0400 BP SITE #1 Ryan Chaudhry MD Work Phone: [facility] 07-09-2025 11:16-0400 BP SITE #2 Ryan Chaudhry MD Work Phone: [facility] 07-09-2025 11:16-0400 Diastolic blood pressure 77 mm[Hg] Ryan Chaudhry MD Work Phone: [facility] 07-09-2025 11:16-0400 Diastolic blood pressure 82 mm[Hg] Ryan Chaudhry MD Work Phone: [facility] 07-09-2025 11:16-0400 Heart rate 61 /min Ryan Chaudhry MD Work Phone: [facility] 07-09-2025 11:16-0400 HGHTCHNVIS Ryan Chaudhry MD Work Phone: [facility] 07-09-2025 11:16-0400 Systolic blood pressure 162 mm[Hg] Ryan Chaudhry MD Work Phone: [facility] 07-09-2025 11:16-0400 Systolic blood pressure 147 mm[Hg] Ryan Chaudhry MD Work Phone: [facility] 07-09-2025 11:16-0400 VITALSDONE Ryan Chaudhry MD Work Phone: [facility] 07-01-2025 09:03-0400 Body height 162.[address] Lucía Sorto MD Work Phone: [facility] 07-01-2025 09:03-0400 Body mass index (BMI) [Ratio] 30.5 kg/m2 Dr. Lucía Sorto MD Work Phone: [facility] 07-01-2025 09:03-0400 Body temperature 96.8 [degF] Dr. Lucía Sorto MD Work Phone: [facility] 07-01-2025 09:03-0400 Body weight 80.[address] Lucía Sorto MD Work Phone: [facility] 07-01-2025 09:03-0400 Diastolic blood pressure 84 mm[Hg] Dr. Lucía Sorto MD Work Phone: [facility] 07-01-2025 09:03-0400 Heart rate 61 /min Dr. Lucía Sorto MD Work Phone: [facility] 07-01-2025 09:03-0400 Respiratory rate 18 /min Dr. Lucía Sorto MD Work Phone: [facility] 07-01-2025 09:03-0400 SaO2% (BldA) [Mass fraction] 97 % Dr. Lucía Sorto MD Work Phone: [facility] 07-01-2025 09:03-0400 Systolic blood pressure 152 mm[Hg] Dr. Lucía Sorto MD Work Phone: [facility] 12-08-2024 09:25-0400 Diastolic blood pressure 88 mm[Hg] Dr. Lucía Sorto MD Work Phone: [facility] 12-08-2024 09:25-0400 Systolic blood pressure 132 mm[Hg] Dr. Lucía Sorto MD Work Phone: [facility] 10-29-2024 09:42-0500 Diastolic blood pressure 84 mm[Hg] Dr. Lucía Sorto MD Work Phone: [facility] 10-29-2024 09:42-0500 Systolic blood pressure 138 mm[Hg] Dr. Lucía Sorto MD Work Phone: [facility] 10-29-2024 09:21-0500 Body height 162.[address] Lucía Sorto MD Work Phone: [facility] 10-29-2024 09:21-0500 Body mass index (BMI) [Ratio] 31.1 kg/m2 Dr. Lucía Sorto MD Work Phone: [facility] 10-29-2024 09:21-0500 Body weight 82.[address] Lucía Sorto MD Work Phone: [facility] 06-27-2023 14:45-0400 Body height 162.[address] Lucía Sorto Work Phone: [facility] 06-27-2023 14:45-0400 Body mass index (BMI) [Ratio] 30.5 kg/m2 Dr. Lucía Sorto Work Phone: [facility] 06-27-2023 14:45-0400 Body temperature 97.2 [degF] Dr. Lucía Sorto Work Phone: [facility] 06-27-2023 14:45-0400 Body weight 80.[address] Lucía Sorto Work Phone: [facility] 06-27-2023 14:45-0400 Diastolic blood pressure 82 mm[Hg] Dr. Lucía Sorto Work Phone: [facility] 06-27-2023 14:45-0400 Heart rate 68 /min Dr. Lucía Sorto Work Phone: [facility] 06-27-2023 14:45-0400 Respiratory rate 18 /min Dr. Lucía Sorto Work Phone: [facility] 06-27-2023 14:45-0400 SaO2% (BldA) [Mass fraction] 98 % Dr. Lucía Sorto Work Phone: [facility] 06-27-2023 14:45-0400 Systolic blood pressure 114 mm[Hg] Dr. Lucía Sorto Work Phone: [facility] 05-25-2023 09:24-0400 Body mass index (BMI) [Ratio] 31.2 kg/m2 Dr. Lucía Sorto Work Phone: [facility] 05-25-2023 09:24-0400 Body temperature 98.4 [degF] Dr. Lucía Sorto Work Phone: [facility] 05-25-2023 09:24-0400 Body weight 82.[address] Lucía Sorto Work Phone: [facility] 05-25-2023 09:24-0400 Diastolic blood pressure 77 mm[Hg] Dr. Lucía Sorto Work Phone: [facility] 05-25-2023 09:24-0400 Heart rate 72 /min Dr. Lucía Sorto Work Phone: [facility] 05-25-2023 09:24-0400 Respiratory rate 17 /min Dr. Lucía Sorto Work Phone: [facility] 05-25-2023 09:24-0400 SaO2% (BldA) [Mass fraction] 96 % Dr. Lucía Sorto Work Phone: [facility] 05-25-2023 09:24-0400 Systolic blood pressure 169 mm[Hg] Dr. Lucía Sorto Work Phone: [facility] 05-01-2022 10:52-0400 Body height 162.[address] Lucía Sorto Work Phone: [facility] Work Phone: 05-01-2022 10:52-0400 Body mass index (BMI) [Ratio] 31 kg/m2 Dr. Lucía Sorto Work Phone: [facility] Work Phone: 05-01-2022 10:52-0400 Body temperature 98 [degF] Dr. Lucía Sorto Work Phone: [facility] Work Phone: 05-01-2022 10:52-0400 Body weight 82.[address] Lucía Sorto Work Phone: [facility] Work Phone: 05-01-2022 10:52-0400 Diastolic blood pressure 76 mm[Hg] Dr. Lucía Sorto Work Phone: [facility] Work Phone: 05-01-2022 10:52-0400 Heart rate 65 /min Dr. Lucía Sorto Work Phone: [facility] Work Phone: 05-01-2022 10:52-0400 Respiratory rate 14 /min Dr. Lucía Sorto Work Phone: [facility] Work Phone: 05-01-2022 10:52-0400 SaO2% (BldA) [Mass fraction] 98 % Dr. Lucía Sorto Work Phone: [facility] Work Phone: 05-01-2022 10:52-0400 Systolic blood pressure 118 mm[Hg] Dr. Lucía Sorto Work Phone: [facility] Work Phone: Encounters Encounter Date Encounter Type Care Provider Facility Start: 07-29-2025 ambulatory Lucía Sorto Facili ty:[facility] Start: 07-11-2025 ambulatory Lucía Sorto Facili ty:[facility] Start: 07-10-2025 Visit out of hours Ryan burton MD Work Phone: [employer] Work Phone: Start: 07-09-2025 In-person encounter Ryan Mcneil MD Work Phone: [facility] Work Phone: Start: 07-01-2025 End: 07-01-[address] Lucía Sorto MD -[facility] Work Phone: Start: 07-01-2025 End: 07-01-[address] Lucía Sorto MD Work Phone: -[facility] Start: 07-01-2025 End: 07-01-2025 [facility] Facility:[facility] Start: 03-18-2025 End: 03-18-[address] Lucía Sorto MD Work Phone: -[facility] Start: 03-18-2025 End: 03-18-[address] Lucía Sorto MD -[facility] Start: 03-18-2025 End: 03-18-[facility] Start: 01-13-2025 End: 01-13-[address] Lucía Sorto MD Work Phone: [facility] Work Phone: Start: 01-13-2025 End: 01-13-[address] Lucía Sorto MD -Laboratory, [facility] Start: 01-13-2025 End: 01-13-2025 ambulatory [facility] Facility:[facility] Start: 12-08-2024 End: 12-08-2024 Patient encounter procedure [facility] NURSE -[facility] Work Phone: Start: 12-08-2024 End: 12-08-2024 ambulatory [facility] Facility:[facility] Start: 12-03-2024 End: 12-03-[address] Lucía Sorto MD Work Phone: [facility] Work Phone: Start: 12-03-2024 End: 12-03-[address] Lucía Sorto MD -Laboratory, [place] Start: 12-03-2024 End: 12-03-2024 ambulatory Lucía Sorto Facility:[facility] Start: 10-29-2024 End: 10-29-2024 Patient encounter procedure Paz MENDIOLA -[facility] Work Phone: Start: 10-29-2024 End: 10-29-2024 Patient encounter status Paz Campos NP-[facility] Start: 10-29-2024 End: 10-29-2024 ambulatory [facility] Facility:[facility] Start: 08-07-2024 End: 08-07-2024 [facility] Start: 08-06-2023 End: 08-06-[address] Lucía Sorto Work Phone: [facility] Work Phone: Start: 08-06-2023 End: 08-06-[address] Lucía Sorto Work Phone: [facility] Work Phone: Start: 06-27-[address] Lucía Sorto Work Phone: [facility] Start: 06-27-2023 End: 06-27-2023 Encounter for general adult medical examination without abnormal findings Dr. Lucía Sorto Work Phone: [facility] Start: 06-27-2023 End: 06-27-[address] Lucía Sorto Work Phone: [facility] Work Phone: Start: 05-25-2023 End: 05-25-[address] Lucía Sorto Work Phone: [facility] Work Phone: Start: 11-20-2022 End: 11-25-2022 ambulatory UMA EVANS MD Facility:[facility] Start: 07-10-2022 End: 07-10-2022 ambulatory LUCÍA SORTO Facility:[facility] Start: 07-10-2022 End: 07-10-2022 Subsequent hospital visit by physician Main A21 1 Radiology Start: 05-27-2022 End: 05-27-[address] Lucía Sorto Work Phone: [facility] Work Phone: Start: 05-27-2022 End: 05-27-[address] Lucía Sorto Work Phone: [facility] Start: 05-05-2022 End: 05-05-[address] Lucía Sorto Work Phone: [facility] Start: 05-01-[address] Lucía Sorto Work Phone: [facility] Start: 05-01-2022 End: 05-01-2022 Emergency department patient visit Dr. Lucía Sorto Work Phone: [facility] Start: 05-01-2022 End: 05-01-2022 Encounter for general adult medical examination without abnormal findings Dr. Lucía Sorto Work Phone: [facility] Start: 05-01-2022 End: 05-01-[address] Lucía Sorto Work Phone: [facility] Start: 05-17-[address] Lucía Sorto Work Phone: [facility] Procedures Date Procedure Procedure Detail Performing Clinician Start: 07-10-2025 Blood pressure outsi de of normal parameters - follow-up not documented Ryan Chaudhry MD Work Phone: Start: 07-10-2025 BMI outside of efraín l parameters - no follow-up plan/reason not given Ryan Chaudhry MD Work Phone: Start: 07-10-2025 Current tobacco non- user cad cap copd pv dm Ryan Chaudhry MD Work Phone: Start: 07-10-2025 Documentation of cur rent medications Ryan Chaudhry MD Work Phone: Start: 07-10-2025 Osteoarthritis symptoms&funcjal status asses Ryan Chaudhry MD Work Phone: Start: 07-10-2025 Pain assessment docu mented as negative - follow-up not required Ryan Chaudhry MD Work Phone: Start: 08-06-2023 Screening mammography Abi Sorto Work Phone: Start: 07-10-2022 US FOOT LT [facility] Start: 05-27-2022 MRI of lower extremity Dr. Lucía Sorto Work Phone: Start: 05-05-2022 Screening mammography Abi Sorto Work Phone: Plan of Treatment Date Care Activity Detail Author Start: 08-05-2025 End: 08-05-2025 [employer] Work Phone: Start: 07-24-2025 End: 07-24-2025 [employer] Work Phone: Start: 07-01-2025 Cardiac event recording [facility] Start: 07-01-2025 CT angiography of coronary arteries [facility] Start: 07-01-2025 Thyroid stimulating hormone measurement [facility] Start: 05-25-2023 Patient referral [facility] Work Phone: Start: 05-25-2022 Influenza vaccination INFLUENZA (#1) [facility] Start: 09-24-2021 DEPRESSION ASSESSMENT DEPRESSION ASSESSMENT [facility] Start: 2014 SHINGRIX VACCINE (1 of 2) SHINGRIX VACCINE (1 of 2) [facility] Start: 2009 COLOGUARD (FIT-DNA) COLOGUARD (FIT-DNA) [facility] Start: 2009 Colonoscopy COLONOSCOPY [facility] Start: 2009 COLORECTAL CANCER SCREENING COLORECTAL CANCER SCREENING [facility] Start: [address] COLONOGRAPHY [facility] Start: 2009 DIABETES SCREEN DIABETES SCREEN [facility] Start: 2009 FECAL OCCULT BLOOD FECAL OCCULT BLOOD [facility] Start: 2009 LIPID SCREEN LIPID SCREEN [facility] Start: 2009 SIGMOIDOSCOPY SIGMOIDOSCOPY [facility] Start: 2004 Mammography MAMMOGRAM [facility] Start: 1994 HPV TESTING HPV TESTING [facility] Start: 1985 PAP TESTING PAP TESTING [facility] Start: 1983 Urine microalbumin profile DTAP,TDAP,TD (1 - Tdap) [facility] Start: 1982 HEPATITIS C SCREENING HEPATITIS C SCREENING [facility] Start: 1982 HIV SCREENING HIV SCREENING [facility] Start: 03-23-1965 COVID-19 VACCINE (#1) COVID-19 VACCINE (#1) [facility] Start: 1964 HEPATITIS B (1 of 3 - 3-dose series) HEPATITIS B (1 of 3 - 3-dose series) [facility] CBC W Auto Different ial panel - Blood [facility] Comprehensive metabo lic 2000 panel - Serum or Plasma [facility] Lipid 1996 panel - S prabhakar or Plasma [facility] Lipoprotein a [Mass/volume] in Serum or Plasma [facility] MG Breast - bilatera l Screening [facility] Work Phone: Patient referral [facility] Work Phone: Immunizations Immunization Date Immunization Notes Care Provider Fa cility 07-01-2025 influenza, injectabl e, madin blaire canine kidney, preservative free Dr. Lucía Sorto MD Work Phone: [facility] 06-30-2024 influenza, injectabl e, madin blaire canine kidney, preservative free Dr. Lucía Sorto MD Work Phone: [facility] 06-30-2024 Influenza, injectabl e, Madin Blaire Canine Kidney, preservative free, quadrivalent Dr. Lucía Sorto MD Work Phone: [facility] 06-27-2023 influenza, injectabl e, quadrivalent, preservative free Dr. Lucía Sorto Work Phone: [facility] 08-12-2021 Covid (Pfizer) Dr. Lucía Sorto MD Work Phone: [facility] 01-06-2021 Covid (Moderna) Dr. Kandy Sorto MD Work Phone: [facility] 12-09-2020 Covid (Moderna) Dr. Kandy Sorto MD Work Phone: [facility] 06-03-2020 influenza, injectabl e, quadrivalent, preservative free Dr. Lucía Sorto MD Work Phone: [facility] Payers Date Payer Category Payer Self-pay [id number] 2022 Unknown [id number] 2022 Unknown [id number] 2019 Unknown [id number] 1965 Unknown [id number] 2.16.8 [id number] 1964 Unknown [id number] 2.16.8 [id number] Private Health Insurance [id number] Private Health Insurance [id number] Unknown [id number] 2.16.8 [id number] Unknown [id number] 2.16.8 [id number] Unknown [id number] 2.16.8 [id number] Unknown [id number] 2.16.8 [id number] Unknown [id number] 2.16.8 [id number] Unknown [id number] 2.16.8 [id number] Unknown [id number] 2.16.8 [id number] Unknown [id number] 2.16.8 [id number] Unknown [id number] 2.16.8 [id number] Unknown [id number] 2.16.8 [id number] Unknown [id number] 2.16.8 [id number] Social History Date Type Detail Facility Start: 05-01-2022 End: 06-27-2023 Tobacco smoking status NHIS Unknown if ever smoked [facility] Start: 1965 Sex Assigned At Female W [facility] Start: 1965 Sex Assigned At Not on file [facility] Start: 06-30-2022 End: 07-10-2022 Exposure to SARS-CoV-2 (event) Not sure [facility] Start: 07-15-2024 Tobacco smoking stat us NHIS Never smoked tobacco (finding) [facility] Start: 12-12-2024 End: 01-19-2025 Sex Female (finding) [facility] Start: 07-09-2025 Sex [facility] Start: 07-09-2025 Tobacco smoking status Never s moked any substance (finding) [facility] Work Phone: Mental Status Date Assessment Result Facility 07-09-2025 Cognitive Function other housing [facility] Work Phone: Evaluation note 12-08-2024 Note Date & Type Note Facility 12-08-2024 Evaluation note Diagnosis Onset Date Resolution Elevated blood-pressure reading without diagnosis of hypertension acute December 08, 2024 8:57am [facility] Work Phone: Evaluation note 10-29-2024 Note Date & Type Note Facility 10-29-2024 Evaluation note Diagnosis Onset Date Resolution Atrophic vaginitis acute ua 2024 9:15am Encounter for routine gynecological examination noneactive October 29 9:15am [facility] Work Phone: Evaluation note 10-29-2024 Note Date & Type Note Facility 10-29-2024 Evaluation note Diagnosis Onset Date Resolution Atrophic vaginitis acute ua 2024 9:15am Encounter for routine gynecological examination noneactive October 29 9:15am Elevated blood-pressure reading without diagnosis of hypertension acute December 08, 2024 8:57am [facility] Work Phone: Chief complaint+Reason for visit Narrative Note Date & Type Note Facility Chief complaint+Reason for visit Narrative Reason for Visit Preoperative evaluat ion to rule out surgical contraindication Preventative health care [facility] Work Phone: Evaluation note Note Date & Type Note Facility Evaluation note Diagnosis Onset Date Preoperative evaluation to r ule out surgical contraindication acute Preventative health care acu te [facility] Work Phone: Evaluation note Note Date & Type Note Facility Evaluation note Diagnosis Onset Date Right shoulder strain acute Health care maintenance acut e Hypothyroidism acute Hyperlipidemia chronic [facility] Work Phone: Evaluation note Note Date & Type Note Facility Evaluation note No assessment information availa [facility] Work Phone: Hospital Discharge instructions Note Date & Type Note Facility Hospital Discharge instructions Ambulatory OrdersOrthopedics Location: None Selected [facility] Work Phone: Reason for referral (narrative) Note Date & Type Note Facility Reason for referral (narrative) No reason for referral information available [facility] Work Phone: Family History No Family History Records Found Relationship Condition Age at Onset Recorded Date/T chun Not Specified Osteoporosis Unknown Cardiac disease Unknown Hyperlipidemia Unknown Myocardial infarction Unknown Hypertension Unknown Cerebrovascular accident (CVA) Unknown Family Member Condition Father Mother Osteoporosis Mother Heart disease Mother Arthritis Mother Chief Complaint and Reason for Visit Chief Complaint SURGERY CLEARANCE, W E HAVE PW SCREENING LEFT FOOT PAIN Reason for Visit Preoperative evaluat ion to rule out surgical contraindication Preventative health care Chief Complaint RIGHT SHOULDER PAIN 1 YR FU SCREENING Reason for Visit Right shoulder strai n Health care maintenance Hypothyroidism Hyperlipidemia Chief Complaint Admit Date Annual ([employer]) October 29, 2024 9 :15am BP & MONITOR CHECK December 08, 2024 8:5 7am Reason for Visit Admit Date Atrophic vaginitis October 29, 2024 9 :15am Encounter for routine gynecological exam ination October 29, 2024 9:15am Reason for Visit Admit Date Atrophic vaginitis October 29, 2024 9 :15am Encounter for routine gynecological exam ination October 29, 2024 9:15am Elevated blood-pressure read ing without diagnosis of hypertension December 08, 2024 8:57am Chief Complaint Admit Date BP & MONITOR CHECK December 08, 2024 8:5 7am Reason for Visit Admit Date Elevated blood-pressure read ing without diagnosis of hypertension December 08, 2024 8:57am Chief Complaint Admit Date YEARLY July 01, 2025 8: 47am Summary Purpose Advance Directives No Advanced Directives Records FoundNo Advanced Directives Records Found No Information Available No Advanced Directives Records Found Additional Source Comments Goals (unrecognized section and content) Goals may be documented in a n alternate sectionGoals may be documented in an alternate sectionGoals may be documented in an alternate sectionGoals may be documented in an alternate sectionGoals may be documented in an alternate sectionGoals may be documented in an alternate sectionGoals may be documented in an alternate section No Information Available INFORMATION SOURCE (unrecogn ized section and content) DATE CREATED AUTHOR 07/15/2022 [facility] DATE CREATED AUTHOR AUTHOR'S ORGANIZ ATION 11/26/2022 [facility] DATE CREATED AUTHOR AUTHOR'S ORGANIZ ATION 07/30/2025 [facility] Source Comments (unrecognize d section and content) In the event this informatio n is protected by the Federal Confidentiality of Alcohol and Drug Abuse Patient Records regulations: The Federal rules restrict any use of the information to criminally investigate or prosecute any alcohol or drug abuse patient.[facility] Care Teams (unrecognized sec tion and content) [employer]inding Machine Tender Relationship Specialty Start Date End Date Lucía Sorto MD [address] [place] [address] PCP - General Internal Medicine 05/15/22 Team Status: Active Member Role Status Dates No Primary Care Physician Family Provider Active Dr. Lucía Sorto MD Primary Care Provider Active Team Status: Inactive Member Role Status Dates Dr. Lucía Sorto MD Primary Care P keagan, Attending Provider, Referring Provider Active Team Status: Inactive Member Role Status Dates Dr. Lucía Sorto MD Primary Care Provider, Refer ring Provider Active MICKY Bartlett Attending Provider Active Team Status: Inactive Member Role Status Dates Dr. Lucía Sorto MD Primary Care Provider Active Start: October 29, 2024 End: October 29, 2024 Dr. Lucía Sorto MD Referring Provider Active Start: October 29, 2024 End: October 29, 2024 Paz Campos NP, [employer]IPMENT [employer]ENDER-C Attending Provider Active Start: October 29, 2024 End: October 29, 2024 Team Status: Inactive Member Role Status Dates Dr. Lucía Sorto MD Primary Care Provider Active Start: December 03, 2024 End: December 03, 2024 Dr. Lucía Sorto MD Attending Provider Active Start: December 03, 2024 End: December 03, 2024 Dr. Lucía Sorto MD Referring Provider Active Start: December 03, 2024 End: December 03, 2024 Team Status: Inactive Member Role Status Dates Dr. Lucía Sorto MD Primary Care Provider Active Start: December 08, 2024 End: December 08, 2024 Dr. Lucía Sorto MD Referring Provider Active Start: December 08, 2024 End: December 08, 2024 [place] NURSE Attending Provider Active Start: [facility] 2024 End: December 08, 2024 Team Status: Inactive Member Role Status Dates Dr. Lucía Sorto MD Primary Care Provider Active Start: December 08, 2024 End: December 08, 2024 Dr. Lucía Sorto MD Attending Provider Active Start: December 08, 2024 End: December 08, 2024 Dr. Lucía Sorto MD Referring Provider Active Start: December 08, 2024 End: December 08, 2024 Team Status: Inactive Member Role Status Dates Dr. Lucía Sorto MD Primary Care Provider Active Start: January 13, 2025 End: January 13, 2025 Dr. Lucía Sorto MD Attending Provider Active Start: January 13, 2025 End: January 13, 2025 Dr. Lucía Sorto MD Referring Provider Active Start: January 13, 2025 End: January 13, 2025 Team Status: Active Member Role/Relationship Status Dates No Primary Care Physician Family Provider Active Dr. Lucía Sorto MD Primary Care Provider Active Team Status: Inactive Member Role/Relationship Status Dates Dr. Lucía Sorto MD Primary Care Provider Active Start: December 03, 2024 End: December 03, 2024 Dr. Lucía Sorto MD Attending Provider Active Start: December 03, 2024 End: December 03, 2024 Dr. Lucía Sorto MD Referring Provider Active Start: December 03, 2024 End: December 03, 2024 Team Status: Inactive Member Role/Relationship Status Dates Dr. Lucía Sorto MD Primary Care Provider Active Start: December 08, 2024 End: December 08, 2024 Dr. Lucía Sorto MD Attending Provider Active Start: December 08, 2024 End: December 08, 2024 Dr. Lucía Sorto MD Referring Provider Active Start: December 08, 2024 End: December 08, 2024 Team Status: Inactive Member Role/Relationship Status Dates Dr. Lucía Sorto MD Primary Care Provider Active Start: January 13, 2025 End: January 13, 2025 Dr. Lucía oSrto MD Attending Provider Active Start: January 13, 2025 End: January 13, 2025 Dr. Lucía Sorto MD Referring Provider Active Start: January 13, 2025 End: January 13, 2025 Team Status: Inactive Member Role/Relationship Status Dates Dr. Lucía Sorto MD Primary Care Provider Active Start: March 18, 2025 End: March 18, 2025 Dr. Lucía Sorto MD Attending Provider Active Start: March 18, 2025 End: March 18, 2025 Dr. Lucía Sorto MD Referring Provider Active Start: March 18, 2025 End: March 18, 2025 Team Status: Active Member Role/Relationship Status Dates Dr. Lucía Sorto MD Primary care physician Activ e Team Status: Inactive Member Role/Relationship Status Dates Dr. Lucía Sorto MD Primary care physician Activ e Start: March 18, 2025 End: March 18, 2025 Dr. Lucía Sorto MD Attending physician Active Start: March 18, 2025 End: March 18, 2025 Dr. Lucía Sorto MD Referring Provider Active Start: March 18, 2025 End: March 18, 2025 Team Status: Inactive Member Role/Relationship Status Dates Dr. Lucía Sorto MD Primary care physician Activ e Start: July 01, 2025 End: July 01, 2025 Dr. Lucía Sorto MD Attending physician Active Start: July 01, 2025 End: July 01, 2025 Dr. Lucía Sorto MD Referring Provider Active Start: July 01, 2025 End: July 01, 2025 REASON FOR VISIT (unrecogniz ed section and content) bilateral hand pain, New - 1 st visit with practice FOR RECORDS PERTAINING TO PATIENTS WHO ARE OR HAVE BEEN ENROLLED IN A CHEMICAL DEPENDENCY/SUBSTANCEABUSE PROGRAM, SOME INFORMATION MAY BE OMITTED. This clinical summary was aggregated from multiple sources. Caution should be exercised in using it in the provision of clinical care. This summary normalizes information from multiple sources, and as a consequence, information in this document may materially change the coding, format and clinical context of patient data. In addition, data may be omitted in some cases. CLINICAL DECISIONS SHOULD BE BASED ON THE PRIMARY CLINICAL RECORDS. [facility]. provides no warranty or guarantee of the accuracy or completeness of information in this document.
[2025-08-27 10:40] LABS: AST(SGOT) 30 U/L (<=31); Alanine Aminotransfer ALT/SGPT 37 U/L (<=34); Albumin, Serum 4.5 g/dL (3.4-4.8); Alkaline Phosphatase 89 U/L (35-104); Anion Gap 10 (5-15); BUN 13 mg/dL (4-19); BUN/Creat Ratio 18.6 RATIO (10-20); Calcium,Total 9.9 mg/dL (7.6-11.0); Carbon Dioxide 26.9 mmol/L (21.0-32.0); Chloride 105 mmol/L (98-108); Globulin 3.0 g/dL (2.2-4.2); Glucose 90 mg/dL (70-99); Potassium 3.9 mmol/L (3.3-5.1)
== END | disposition home or self-care (01) ==
PROVIDERS: PCP Internal Medicine; Referring Provider Internal Medicine; Visit Provider Internal Medicine
DX: E03.9 Hypothyroidism, unspecified (principal)
CPT/HCPCS: 36415; 80053; 84443